=== PATIENT | female | born 1985 | race African-American/Black ===

== ENCOUNTER 2018-08-30 11:17 | Emergency (ER) | payer SELFPAY ==
[2018-08-30] MEDS ORDERED: NA CHLORIDE 0.9% 1,000 ML ONE (11:59)
[2018-08-30] MEDS ORDERED: ONDANSETRON 4 MG/2 ML VIAL ONE (11:59)
[2018-08-30] MEDS ORDERED: MORPHINE 2 MG/ML SYR ONE (11:59)
[2018-08-30 12:10] LABS: Absolute Monocytes 0.6 K/uL (0.1-1.3); Absolute Neutrophil 6.5 K/uL (1.8-8.0); Basophils % 0.6 % (0-1.3); Eosinophils % 1.5 % (0-4.4); Hematocrit 42.3 % (36.0-45.0); Lymphocytes % 28.9 % (15.3-44.8); MPV 10.6 fL (7.6-11.3); Monocytes % 5.8 % (3.3-12.3); RBC Red Blood Cell Count 4.36 M/uL (3.86-4.86)
[2018-08-30 12:18] LABS: Urine Blood NEGATIVE (NEG); Urine Glucose NEGATIVE (NEG); Urine Protein NEGATIVE (NEG)
[2018-08-30 12:20] LABS: Urine Bacteria >50 /HPF (<20); Urine Culture Reflex Order NOT NEEDED; Urine RBC <5 /HPF (NONE SEEN)
[2018-08-30 12:30] LABS: ALT/SGPT 28 U/L (12-78); AST/SGOT 24 U/L (15-37); Alkaline Phosphatase 62 U/L (45-117); BUN Blood Urea Nitrogen 9 mg/dL (7-18); Bicarbonate 28 mmol/L (21-32); Bilirubin Direct 0.2 mg/dL (0-0.2); Bilirubin Total 0.7 mg/dL (0.2-1.0); Glucose Level 77 mg/dL (74-106); Lipase 78 U/L (73-393); Potassium 4.1 mmol/L (3.5-5.1); Protein, Total 7.5 g/dL (6.4-8.2); Sodium Level 143 mmol/L (136-145)
[2018-08-30] MEDS ORDERED: KETOROLAC 30 MG/ML INJ ONE (12:48)
--- NOTE | 2018-08-30 12:57 | RAD REPORT ---
EXAM DESCRIPTION: US - Transvaginal Study Probe - 08/30/2018 12:47 pm CLINICAL HISTORY: lower abdomen/pelvic pain Pelvic pain. COMPARISON: No comparisons FINDINGS: The uterus is normal in size, shape and echotexture. The uterus measures 7.1 x 4.2 x 2.7 c m. The endometrial stripe measures 6 mm, normal. Both ovaries are normal in size, shape and echotexture. The right ovary measures 4.3 x 2.1 x 1.9 cm. The left ovary measures 4.0 x 2.5 x 2.1 cm. No ovarian or parovarian lesions. No adnexal masses. Normal Doppler blood flow was demonstrated to both ovaries. No significant pelvic ascites. IMPRESSION: Unremarkable study.
[2018-08-30] MEDS ORDERED: METHYLPREDNISOLONE 40 MG INJ ONE (14:50)
[2018-08-30] MEDS ORDERED: DIPHENHYDRAMINE 50 MG/ML VIAL ONE (14:50)
[2018-08-30] MEDS ORDERED: FAMOTIDINE 20 MG/2 ML VIAL IV ONE (14:50)
--- NOTE | 2018-08-30 15:20 | RAD REPORT ---
EXAM DESCRIPTION: CTAbdomen Pelvis W Contrast - 08/30/2018 3:15 pm CLINICAL HISTORY: Abdominal pain. lower abdomen pain/pelvic pain COMPARISON: <Comparisons> TECHNIQUE: Biphasic CT imaging of the abdomen and pelvis was performed with 100 ml non-ionic IV cont rast. All CT scans are performed using dose optimization technique as appropriate and may include automated exposure control or mA/KV adjustment according to patient size. FINDINGS: The lung bases are clear. The liver, spleen, pancreas, adrenal glands and kidneys are within normal limits. No bowel obstruction, free air, intra-abdominal free fluid or abscess. The appendix is normal. No e vidence of significant lymphadenopathy. Trace pelvic free fluid seen, favored to be physiologic. No suspicious bony findings. IMPRESSION: No acute intra-abdominal or pelvic finding.
--- NOTE | 2018-08-30 15:39 | EDPHYS ---
Physician Documentation [facility] Name: Ervin Iniguez Age: 33 yrs Sex: Female : 1985 Arrival Date: 08/30/2018 Time: 11:19 Bed 13 Private MD: None, None ED Physician Thai Rodas HPI: 08/30 11:50 This 33 yrs old Black Female presents to ER via Ambulatory with complaints of Abdominal cp Cramping, Back Pain, Pelvic Pain. 11:50 The patient presents with pelvic pain, the pain radiates to the back. cp 11:50 Onset: The symptoms/episode began/occurred this morning. cp 11:50 Modifying factors: the symptoms are aggravated by movement. cp 11:50 Associated signs and symptoms: Pertinent positives: nausea, vaginal discharge, cp Pertinent negatives: constipation, diarrhea, dysuria, fever, vaginal bleeding, vomiting. The patient is sexually active. The patient's method of control includes nothing. 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 - Social history:: Smoking status: Patient uses tobacco products, smokes one pack cigarettes per day. Patient uses street drugs, marijuana, daily. - Ebola Screening: : Patient denies travel to an Ebola-affected area in the 21 days before illness onset. ROS: 12:00 Constitutional: Negative for body aches, chills, fever, poor PO intake. cp 12:00 Eyes: Negative for injury, pain, redness, and discharge. cp 12:00 ENT: Negative for drainage from ear(s), ear pain, sore throat, difficulty swallowing, difficulty handling secretions. 12:00 Cardiovascular: Negative for chest pain, palpitations. 12:00 Respiratory: Negative for cough, shortness of breath, wheezing. 12:00 Abdomen/GI: Positive for abdominal pain, of the right lower quadrant and left lower quadrant, Negative for vomiting, diarrhea, constipation. 12:00 : Positive for pelvic pain, vaginal discharge, Negative for urinary symptoms, vaginal bleeding. 12:00 Neuro: Negative for altered mental status, dizziness, headache, weakness. 12:00 All other systems are negative. Exam: 12:12 Constitutional: The patient appears in no acute distress, alert, awake, non-toxic, well cp developed, well nourished, uncomfortable. 12:12 Head/Face: Normocephalic, atraumatic. cp 12:12 Eyes: Periorbital structures: appear normal, Conjunctiva: normal, no exudate, no injection, Sclera: no appreciated abnormality, Lids and lashes: appear normal, bilaterally. 12:12 ENT: External ear(s): are unremarkable, Nose: is normal, Mouth: Lips: moist, Oral mucosa: moist, Posterior pharynx: is normal, airway is patent, no erythema, no exudate. 12:12 Neck: ROM/movement: is normal, is supple, without pain, no range of motions limitations, no meningismus, no nuchal rigidity. 12:12 Chest/axilla: Inspection: normal, Palpation: is normal, no crepitus, no tenderness. 12:12 Cardiovascular: Rate: normal, Rhythm: regular. 12:12 Respiratory: the patient does not display signs of respiratory distress, Respirations: normal, no use of accessory muscles, no retractions, no splinting, no tachypnea, Breath sounds: are clear throughout. 12:12 Abdomen/GI: Inspection: abdomen appears normal, Bowel sounds: normal, in all quadrants, Palpation: soft, in all quadrants, moderate abdominal tenderness, in the right lower quadrant and left lower quadrant, rebound tenderness, is not appreciated, involuntary guarding, is elicited in the right lower quadrant and left lower quadrant. 12:12 Back: ROM is normal, CVA tenderness, is absent. 12:12 Skin: cellulitis, is not appreciated, no rash present. 14:30 : Pelvic Exam: External exam: is normal, Speculum exam: no bleeding is noted, cp bimanual exam reveals cervical motion tenderness, uterine tenderness, right adnexal tenderness, left adnexal tenderness, no adnexal mass on right, no adnexal mass on left, discharge, white, a female director of in service education was present for the exam, Sexual behavior: the patient is sexually active. Vital Signs: 11:39 BP 107 / 71; Pulse 77; Resp 18; Temp 98(TE); Pulse Ox 100% on R/A; Weight 49.9 kg (R); tw2 Height 4 ft. 11 in. (149.86 cm); Pain 10/10; 12:40 BP 126 / 88; Pulse 58; Resp 17; Pulse Ox 99% on R/A; tw2 13:07 BP 111 / 91; Pulse 63; Resp 17; Pulse Ox 100% on R/A; tw2 14:06 BP 117 / 96; Pulse 63; Resp 17; Pulse Ox 99% on R/A; tw2 15:00 BP 108 / 77; Pulse 69; Resp 17; Pulse Ox 99% on R/A; tw2 15:54 BP 103 / 66; Pulse 61; Resp 17; Pulse Ox 100% on R/A; tw2 11:39 Body Mass Index 22.22 (49.90 kg, 149.86 cm) tw2 MDM: 11:33 Patient medically screened. cp 12:00 Differential diagnosis: ectopic , ovarian cyst, pelvic inflammatory disease. cp 15:30 Data reviewed: vital signs, nurses notes, lab test result(s), radiologic studies, CT cp scan, ultrasound, and as a result, I will discharge patient. 08/30 11:46 Order name: Basic Metabolic Panel; Complete Time: 12:34 cp 08/30 12:34 Interpretation: Normal except: CL 110. cp 08/30 11:46 Order name: CBC with Diff; Complete Time: 12:28 cp 08/30 12:28 Interpretation: Reviewed. cp 08/30 11:46 Order name: Creatinine for Radiology; Complete Time: 12:34 cp 08/30 11:46 Order name: Hepatic Function; Complete Time: 12:34 cp 08/30 11:46 Order name: Lipase; Complete Time: 12:34 cp 08/30 11:46 Order name: Urine Microscopic Only; Complete Time: 12:28 cp 08/30 12:28 Interpretation: Normal except: UBACT >50; SQEPI 20-50. cp 08/30 11:46 Order name: US Transvaginal Study (Probe); Complete Time: 14:25 cp 08/30 12:07 Order name: Urine Dipstick--Ancillary (enter results); Complete Time: 12:28 eb 08/30 12:07 Order name: Urine --Ancillary (enter results); Complete Time: 12:28 eb 08/30 12:34 Order name: CT Abd/Pelvis - W/Contrast; Complete Time: 15:25 cp 08/30 12:40 Order name: GC (GONORR/CHLAMYDIA) Probe cp 08/30 12:40 Order name: Wet Prep; Complete Time: 14:25 cp 08/30 14:25 Interpretation: Reviewed. cp 08/30 11:46 Order name: IV Saline Lock; Complete Time: 12:03 cp 08/30 11:46 Order name: Labs collected and sent; Complete Time: 12:03 cp 08/30 11:46 Order name: Urine Test (obtain specimen); Complete Time: 11:48 cp 08/30 11:46 Order name: Urine Dipstick-Ancillary (obtain specimen); Complete Time: 11:48 cp 08/30 12:40 Order name: Pelvic Exam Setup; Complete Time: 12:41 cp Administered Medications: 11:52 Drug: Zofran 4 mg Route: IVP; Site: right antecubital; tw2 12:40 Follow up: Response: No adverse reaction tw2 11:54 Drug: morphine 2 mg Route: IVP; Site: right antecubital; tw2 12:40 Follow up: Response: No adverse reaction; Pain is unchanged, physician notified tw2 11:57 Drug: NS 0.9% 1000 ml Route: IV; Rate: 1 bolus; Site: right antecubital; tw2 14:49 Follow up: Response: No adverse reaction; IV Status: Completed infusion; IV Intake: tw2 1000ml 12:37 Drug: TORadol 30 mg Route: IVP; Site: right antecubital; tw2 14:50 Follow up: Response: No adverse reaction; Pain is decreased tw2 13:40 Drug: Zithromax 1 grams Route: PO; tw2 15:55 Follow up: Response: No adverse reaction tw2 14:40 Drug: Benadryl 25 mg Route: IVP; Site: right antecubital; tw2 15:34 Follow up: Response: No adverse reaction tw2 14:45 Drug: Pepcid 20 mg Route: IVP; Site: right antecubital; tw2 15:34 Follow up: Response: No adverse reaction tw2 14:48 Drug: SOLU-Medrol 80 mg Route: IVP; Site: right antecubital; tw2 15:34 Follow up: Response: No adverse reaction tw2 15:40 Drug: Rocephin 1 grams Route: IV; Rate: bolus; Site: right antecubital; tw2 15:45 Follow up: Response: No adverse reaction; IV Status: Completed infusion tw2 15:40 Drug: metroNIDAZOLE 500 mg Route: PO; tw2 15:55 Follow up: Response: No adverse reaction tw2 Disposition: 17:13 Co-signature as Attending Physician, Thai Rodas MD. rn Disposition: 08/30/18 15:38 Discharged to Home. Impression: Female pelvic inflammatory disease, unspecified. - Condition is Stable. - Discharge Instructions: Pelvic Inflammatory Disease, Pelvic Pain, Female. - Prescriptions for Ibuprofen 600 mg Oral Tablet - take 1 tablet by ORAL route every 6 hours As needed take with food; 30 tablet. Tylenol- Codeine #3 300-30 mg Oral Tablet - take 2 tablets by ORAL route every 6 hours As needed; 15 tablet. Doxycycline Hyclate 100 mg Oral Tablet - take 1 tablet by ORAL route every 12 hours; 20 tablet. Metronidazole 500 mg Oral Tablet - take 1 tablet by ORAL route every 8 hours; 30 tablet. - Medication Reconciliation Form, Thank You Letter, Antibiotic Education, Prescription Opioid Use form. - Follow up: Margarita Win MD; When: 1 week; Reason: Recheck today's complaints. - Problem is new. - Symptoms have improved. Signatures: Dispatcher [employer] EDThai Carver MD MD rn Page, Corey, PA PA cp Wise, Tara, RN RN tw2 Corrections: (The following items were deleted from the chart) 15:56 15:38 08/30/2018 15:38 Discharged to Home. Impression: Female pelvic inflammatory tw2 disease, unspecified. Condition is Stable. Forms are Medication Reconciliation Form, Thank You Letter, Antibiotic Education, Prescription Opioid Use. Follow up: Margarita Win; When: 1 week; Reason: Recheck today's complaints. Problem is new. Symptoms have improved. cp
--- NOTE | 2018-08-30 15:39 | ER ---
Nurse's Notes [facility] Name: Ervin Iniguez Age: 33 yrs Sex: Female : 1985 Arrival Date: 08/30/2018 Time: 11:19 Bed 13 Private MD: None, None Diagnosis: Female pelvic inflammatory disease, unspecified Presentation: 08/30 11:38 Presenting complaint: Patient states: "my insides feels like its falling out and i am tw2 having back pain that runs straight down to my private, i havent had sex since June". Transition of care: patient was not received from another setting of care. Onset of symptoms was August 30, 2018. Risk Assessment: Do you want to hurt yourself or someone else? Patient reports no desire to harm self or others. Initial Sepsis Screen: Does the patient meet any 2 criteria? No. Patient's initial sepsis screen is negative. Does the patient have a suspected source of infection? No. Patient's initial sepsis screen is negative. Care prior to arrival: None. 11:38 Method Of Arrival: Ambulatory tw2 11:38 Acuity: MARGARET 3 tw2 Triage Assessment: 11:41 General: Appears uncomfortable, Behavior is appropriate for age. Pain: Complains of tw2 pain in pelvis. GI: Reports cramping. 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 - Social history:: Smoking status: Patient uses tobacco products, smokes one pack cigarettes per day. Patient uses street drugs, marijuana, daily. - Ebola Screening: : Patient denies travel to an Ebola-affected area in the 21 days before illness onset. Screenin:44 Abuse screen: Denies threats or abuse. Nutritional screening: No deficits noted. tw2 Tuberculosis screening: Fall Risk None identified. Assessment: 11:44 General: Appears uncomfortable, slender, Behavior is appropriate for age. Pain: tw2 Complains of pain in pelvis. Neuro: Level of Consciousness is awake, alert, obeys commands, Oriented to person, place, time, situation. Cardiovascular: Heart tones S1 S2 Patient's skin is warm and dry. Respiratory: Airway is patent Respiratory effort is even, unlabored, Respiratory pattern is regular, symmetrical, Breath sounds are clear bilaterally. GI: Abdomen is flat, distended, Bowel sounds present X 4 quads. Abd is soft X 4 quads. GI: Reports cramping. : Denies incontinence, urinary frequency, vaginal bleeding. EENT: No signs and/or symptoms were reported regarding the EENT system. Derm: No signs and/or symptoms reported regarding the dermatologic system. Musculoskeletal: Range of motion: intact in all extremities. 12:41 Reassessment: Patient appears in no apparent distress at this time. Patient and/or tw2 family updated on plan of care and expected duration. Pain level reassessed. Patient is alert, oriented x 3, equal unlabored respirations, skin warm/dry/pink. Patient states symptoms have not improved. 12:45 Reassessment: call made to outside lab for wet prep and gc probes - Pelvic exam on hold tw2 at this time. 12:49 Reassessment: pt completed oral contrast at this time. tw2 13:07 Reassessment: Patient appears in no apparent distress at this time. Patient and/or tw2 family updated on plan of care and expected duration. Pain level reassessed. Patient is alert, oriented x 3, equal unlabored respirations, skin warm/dry/pink. 14:06 Reassessment: Patient appears in no apparent distress at this time. Patient and/or tw2 family updated on plan of care and expected duration. Pain level reassessed. Patient is alert, oriented x 3, equal unlabored respirations, skin warm/dry/pink. 15:00 Reassessment: Patient appears in no apparent distress at this time. Patient and/or tw2 family updated on plan of care and expected duration. Pain level reassessed. Patient is alert, oriented x 3, equal unlabored respirations, skin warm/dry/pink. 15:55 Reassessment: Patient appears in no apparent distress at this time. Patient and/or tw2 family updated on plan of care and expected duration. Pain level reassessed. Patient is alert, oriented x 3, equal unlabored respirations, skin warm/dry/pink. Vital Signs: 11:39 BP 107 / 71; Pulse 77; Resp 18; Temp 98(TE); Pulse Ox 100% on R/A; Weight 49.9 kg (R); tw2 Height 4 ft. 11 in. (149.86 cm); Pain 10/10; 12:40 BP 126 / 88; Pulse 58; Resp 17; Pulse Ox 99% on R/A; tw2 13:07 BP 111 / 91; Pulse 63; Resp 17; Pulse Ox 100% on R/A; tw2 14:06 BP 117 / 96; Pulse 63; Resp 17; Pulse Ox 99% on R/A; tw2 15:00 BP 108 / 77; Pulse 69; Resp 17; Pulse Ox 99% on R/A; tw2 15:54 BP 103 / 66; Pulse 61; Resp 17; Pulse Ox 100% on R/A; tw2 11:39 Body Mass Index 22.22 (49.90 kg, 149.86 cm) tw2 ED Course: 11:19 Patient arrived in ED. mr 11:20 None, None is Private Physician. mr 11:32 Yury Pena PA is PHCP. cp 11:32 Bed in low position. Call light in reach. Adult w/ patient. Pulse ox on. NIBP on. tw2 11:33 Thai Rodas MD is Attending Physician. cp 11:38 Joanna Jamison, JEOVANY is Primary Nurse. tw2 11:39 Triage completed. tw2 11:40 Arm band placed on. tw2 11:50 Inserted saline lock: 20 gauge in right antecubital area, using aseptic technique. tw2 Blood collected. 11:55 Urine collected: clean catch specimen, cloudy. 5 11:55 Urine Microscopic Only Sent. 5 12:47 US Transvaginal Study (Probe) In Process Unspecified. EDMS 12:47 Ultrasound completed. Patient tolerated well. Notified CERTIFIED EXECUTIVE CHEF/PA page. sg3 13:00 Assist provider with pelvic exam: Set up pelvic tray. Performed by Yury ANDINO tw2 Specimens sent to lab. Patient tolerated well. 15:05 CT completed. Patient tolerated procedure well. Patient moved to CT. Patient moved back from CT. 15:15 CT Abd/Pelvis - W/Contrast In Process Unspecified. EDMS 15:38 Margarita Win MD is Referral Physician. cp 15:56 IV discontinued, intact, bleeding controlled, No redness/swelling at site. Pressure tw2 dressing applied. Administered Medications: 11:52 Drug: Zofran 4 mg Route: IVP; Site: right antecubital; tw2 12:40 Follow up: Response: No adverse reaction tw2 11:54 Drug: morphine 2 mg Route: IVP; Site: right antecubital; tw2 12:40 Follow up: Response: No adverse reaction; Pain is unchanged, physician notified tw2 11:57 Drug: NS 0.9% 1000 ml Route: IV; Rate: 1 bolus; Site: right antecubital; tw2 14:49 Follow up: Response: No adverse reaction; IV Status: Completed infusion; IV Intake: tw2 1000ml 12:37 Drug: TORadol 30 mg Route: IVP; Site: right antecubital; tw2 14:50 Follow up: Response: No adverse reaction; Pain is decreased tw2 13:40 Drug: Zithromax 1 grams Route: PO; tw2 15:55 Follow up: Response: No adverse reaction tw2 14:40 Drug: Benadryl 25 mg Route: IVP; Site: right antecubital; tw2 15:34 Follow up: Response: No adverse reaction tw2 14:45 Drug: Pepcid 20 mg Route: IVP; Site: right antecubital; tw2 15:34 Follow up: Response: No adverse reaction tw2 14:48 Drug: SOLU-Medrol 80 mg Route: IVP; Site: right antecubital; tw2 15:34 Follow up: Response: No adverse reaction tw2 15:40 Drug: Rocephin 1 grams Route: IV; Rate: bolus; Site: right antecubital; tw2 15:45 Follow up: Response: No adverse reaction; IV Status: Completed infusion tw2 15:40 Drug: metroNIDAZOLE 500 mg Route: PO; tw2 15:55 Follow up: Response: No adverse reaction tw2 Intake: 14:49 IV: 1000ml; Total: 1000ml. tw2 Outcome: 15:38 Discharge ordered by . cp 15:56 Discharged to home ambulatory, with family. tw2 15:56 Condition: stable 15:56 Discharge instructions given to patient, family, Instructed on discharge instructions, follow up and referral plans. no drinking with medication, no driving heavy equipment, medication usage, Demonstrated understanding of instructions, follow-up care, medications, Prescriptions given X 4. 15:56 Patient left the ED. tw2 Signatures: Dispatcher [employer] EDMS RodHermelinda mr Tammy, Yury Prabhakar PA PA cp Wise, Tara, RN RN 2 Alejandra Hannah [facility] [place] 3
[2018-08-30] MEDS ORDERED: CEFTRIAXONE/SWI 1gm 1 GM/10 ML SYR ONE (15:48)
[2018-08-30] MEDS ORDERED: AZITHROMYCIN 250 MG TAB ONE (15:48)
[2018-08-30] MEDS ORDERED: metroNIDAZOLE 500 MG TABLET ONE (15:48)
[2018-09-02 22:29] LABS: C.trachomatis RNA,TMA Not Detected (Not Detected)
== END 2018-08-30 15:56 | disposition home or self-care (01) ==
LOC: ER 11:17
DX: N73.9 Female pelvic inflammatory disease, unspecified (principal); F17.210 Nicotine dependence, cigarettes, uncomplicated; Z91.013 Allergy to seafood
CPT/HCPCS: 36415; 74177; 76830; 80048; 80076; 81003; 81015; 81025; 83690; 85025; 87210; 87490; 87590; 96361; 96374; 96375; 99285; J0696; J2270; J2405; J2920; J7030; Q9967

== ENCOUNTER 2018-12-24 19:04 | Emergency (ER) | payer SELFPAY ==
[2018-12-24 19:57] LABS: Absolute Lymphocytes (CBC) 3.1 K/uL (0.7-4.9); Basophils % 0.8 % (0-1.3); Hematocrit 41.8 % (36.0-45.0); Lymphocytes % 31.6 % (15.3-44.8); MPV 10.4 fL (7.6-11.3); RBC Red Blood Cell Count 4.26 M/uL (3.86-4.86)
[2018-12-24] MEDS ORDERED: NA CHLORIDE 0.9% 1,000 ML ONE (20:01)
[2018-12-24 20:08] LABS: Potassium 3.5 mmol/L (3.5-5.1)
[2018-12-24 20:20] LABS: Urine Blood 1+ (NEG); Urine Glucose NEGATIVE (NEG); Urine Protein NEGATIVE (NEG); Urine Specific Gravity 1.025 (1.005-1.030); Urine pH 5.5 (5.0-7.0)
[2018-12-24] MEDS ORDERED: MORPHINE 2 MG/ML SYR ONE (20:39)
[2018-12-24] MEDS ORDERED: ONDANSETRON 4 MG/2 ML VIAL ONE (20:39)
--- NOTE | 2018-12-24 20:53 | EDPHYS ---
Physician Documentation [facility] Name: Ervin Iniguez Age: 33 yrs Sex: Female : 1985 Arrival Date: 12/24/2018 Time: 19:06 Bed 17 Private MD: ED Physician Yury Raygoza HPI: 12/24 20:15 This 33 yrs old Black Female presents to ER via Ambulatory with complaints of Vaginal stephanie Bleeding. 20:15 The patient presents with pelvic pain, that is located in/on the suprapubic area, right stephanie lower quadrant and left lower quadrant, vaginal bleeding that is. Onset: The symptoms/episode began/occurred 1 day(s) ago. Modifying factors: The symptoms are alleviated by nothing, the symptoms are aggravated by nothing. Associated signs and symptoms: The patient has no apparent associated signs or symptoms. Severity of symptoms: At their worst the symptoms were moderate, in the emergency department the symptoms are unchanged. The patient is not sexually active. 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 - Social history:: Smoking status: Patient/guardian denies using tobacco. - Ebola Screening: : Patient negative for fever greater than or equal to 101.5 degrees Fahrenheit, and additional compatible Ebola Virus Disease symptoms Patient denies exposure to infectious person Patient denies travel to an Ebola-affected area in the 21 days before illness onset No symptoms or risks identified at this time. - Family history:: not pertinent. ROS: 20:15 Constitutional: Negative for fever, chills, and weight loss, Eyes: Negative for injury, stephanie pain, redness, and discharge, ENT: Negative for injury, pain, and discharge, Neck: Negative for injury, pain, and swelling, Cardiovascular: Negative for chest pain, palpitations, and edema, Respiratory: Negative for shortness of breath, cough, wheezing, and pleuritic chest pain, Abdomen/GI: Negative for abdominal pain, nausea, vomiting, diarrhea, and constipation, Back: Negative for injury and pain, MS/Extremity: Negative for injury and deformity, Skin: Negative for injury, rash, and discoloration, Neuro: Negative for headache, weakness, numbness, tingling, and seizure, Psych: Negative for depression, anxiety, suicide ideation, homicidal ideation, and hallucinations, Allergy/Immunology: Negative for hives, rash, and allergies, Endocrine: Negative for neck swelling, polydipsia, polyuria, polyphagia, and marked weight changes, Hematologic/Lymphatic: Negative for swollen nodes, abnormal bleeding, and unusual bruising. 20:15 : Positive for vaginal bleeding. Exam: 20:15 Constitutional: This is a well developed, well nourished patient who is awake, alert, stephanie and in no acute distress. Head/Face: Normocephalic, atraumatic. Eyes: Pupils equal round and reactive to light, extra-ocular motions intact. Lids and lashes normal. Conjunctiva and sclera are non-icteric and not injected. Cornea within normal limits. Periorbital areas with no swelling, redness, or edema. ENT: Nares patent. No nasal discharge, no septal abnormalities noted. Tympanic membranes are normal and external auditory canals are clear. Oropharynx with no redness, swelling, or masses, exudates, or evidence of obstruction, uvula midline. Mucous membranes moist. Neck: Trachea midline, no thyromegaly or masses palpated, and no cervical lymphadenopathy. Supple, full range of motion without nuchal rigidity, or vertebral point tenderness. No Meningismus. Chest/axilla: Normal chest wall appearance and motion. Nontender with no deformity. No lesions are appreciated. Cardiovascular: Regular rate and rhythm with a normal S1 and S2. No gallops, murmurs, or rubs. Normal PMI, no JVD. No pulse deficits. Respiratory: Lungs have equal breath sounds bilaterally, clear to auscultation and percussion. No rales, rhonchi or wheezes noted. No increased work of breathing, no retractions or nasal flaring. Abdomen/GI: Soft, non-tender, with normal bowel sounds. No distension or tympany. No guarding or rebound. No evidence of tenderness throughout. Back: No spinal tenderness. No costovertebral tenderness. Full range of motion. Skin: Warm, dry with normal turgor. Normal color with no rashes, no lesions, and no evidence of cellulitis. MS/ Extremity: Pulses equal, no cyanosis. Neurovascular intact. Full, normal range of motion. Neuro: Awake and alert, GCS 15, oriented to person, place, time, and situation. Cranial nerves II-XII grossly intact. Motor strength 5/5 in all extremities. Sensory grossly intact. Cerebellar exam normal. Normal gait. Psych: Awake, alert, with orientation to person, place and time. Behavior, mood, and affect are within normal limits. Vital Signs: 19:10 BP 105 / 64; Pulse 74; Resp 18; Temp 98.0; Pulse Ox 100% on R/A; Weight 51.26 kg; aj Height 4 ft. 11 in. (149.86 cm); 20:49 BP 119 / 66; Pulse 50; Resp 16; Temp 98.0; Pulse Ox 100% on R/A; Pain 0/10; ak1 19:10 Body Mass Index 22.82 (51.26 kg, 149.86 cm) aj MDM: 19:22 Patient medically screened. [facility] 20:18 Data reviewed: vital signs, nurses notes, lab test result(s), electrolytes, hepatic stephanie panel, urinalysis. 12/24 19:22 Order name: Basic Metabolic Panel; Complete Time: 20:15 [facility] 12/24 19:22 Order name: CBC with Diff; Complete Time: 20:15 [facility] 12/24 20:03 Order name: Urine Dipstick--Ancillary (enter results); Complete Time: 20:53 ar5 12/24 20:06 Order name: Test, Urine; Complete Time: 20:53 EDUT 12/24 19:22 Order name: Urine Test (obtain specimen); Complete Time: 19:56 [facility] 12/24 19:22 Order name: IV Saline Lock; Complete Time: 19:50 [facility] 12/24 19:22 Order name: Labs collected and sent; Complete Time: 19:50 [facility] 12/24 19:22 Order name: NPO; Complete Time: 19:57 [facility] 12/24 19:22 Order name: Urine Dipstick-Ancillary (obtain specimen); Complete Time: 19:56 [facility] Administered Medications: 19:57 Drug: NS 0.9% 1000 ml Route: IV; Rate: 1 bolus; Site: left antecubital; ak1 21:15 Follow up: Response: No adverse reaction; IV Status: Completed infusion; IV Intake: jb4 500ml 20:36 Drug: Zofran 4 mg Route: IVP; Site: left antecubital; ak1 21:00 Follow up: Response: No adverse reaction; Nausea is decreased jb4 20:37 Drug: morphine 2 mg Route: IVP; Site: left antecubital; ak1 21:00 Follow up: Response: No adverse reaction; Pain is decreased jb4 21:18 Not Given (Patient Refused): morphine 2 mg IVP once jb4 Disposition: 12/24/18 20:53 Discharged to Home. Impression: Pelvic and perineal pain - vaginal bleeding, Dysmenorrhea, unspecified. - Condition is Stable. - Discharge Instructions: Abdominal Pain, Adult, Dysmenorrhea, Pelvic Pain, Female, Dysfunctional Uterine Bleeding, Pelvic Pain, Female, Zepf-ea-Brle, Dysmenorrhea, Bjqw-wt-[id number]. - Prescriptions for Ibuprofen 600 mg Oral Tablet - take 1 tablet by ORAL route every 8 hours As needed take with food; 21 tablet. Tylenol- Codeine #3 300-30 mg Oral Tablet - take 2 tablets by ORAL route every 6 hours As needed; 15 tablet. - Medication Reconciliation Form, Thank You Letter, Antibiotic Education, Prescription Opioid Use, Work release form form. - Follow up: Private Physician; When: 2 - 3 days; Reason: Recheck today's complaints, Continuance of care, Re-evaluation by your physician. Follow up: Miguel Askew; When: 2 - 3 days; Reason: Recheck today's complaints, Continuance of care, Re-evaluation by your physician. - Problem is new. - Symptoms have improved. Signatures: Dispatcher [employer] EDMayelin Kuo RN RN aj Anderson, Corey, MD MD cha Krenek, Amber, RN RN ak1 Ambrosio Cronin RN RN jb4 Corrections: (The following items were deleted from the chart) 21:17 20:53 12/24/2018 20:53 Discharged to Home. Impression: Pelvic and perineal pain - jb4 vaginal bleeding; Dysmenorrhea, unspecified. Condition is Stable. Discharge Instructions: Abdominal Pain, Adult, Dysmenorrhea, Pelvic Pain, Female, Dysfunctional Uterine Bleeding, Pelvic Pain, Female, Pqcr-[id number], Dysmenorrhea, [id number]-[id number]. Prescriptions for Ibuprofen 600 mg Oral Tablet - take 1 tablet by ORAL route every 8 hours As needed take with food; 21 tablet, Tylenol-Codeine #3 300-30 mg Oral Tablet - take 2 tablets by ORAL route every 6 hours As needed; 15 tablet. and Forms are Medication Reconciliation Form, Thank You Letter, Antibiotic Education, Prescription Opioid Use. Follow up: Private Physician; When: 2 - 3 days; Reason: Recheck today's complaints, Continuance of care, Re-evaluation by your physician. Follow up: Miguel Askew; When: 2 - 3 days; Reason: Recheck today's complaints, Continuance of care, Re-evaluation by your physician. Problem is new. Symptoms have improved. stephanie
--- NOTE | 2018-12-24 20:53 | ER ---
Nurse's Notes [facility] Name: Ervin Iniguez Age: 33 yrs Sex: Female : 1985 Arrival Date: 12/24/2018 Time: 19:06 Bed 17 Private MD: Diagnosis: Pelvic and perineal pain-vaginal bleeding;Dysmenorrhea, unspecified Presentation: 12/24 19:10 Presenting complaint: Patient states: Reports vaginal bleeding that started yesterday. aj Reports having a period 10 days ago. Transition of care: patient was not received from another setting of care. Onset of symptoms was December 23, 2018. Risk Assessment: Do you want to hurt yourself or someone else? Patient reports no desire to harm self or others. Initial Sepsis Screen: Does the patient meet any 2 criteria? No. Patient's initial sepsis screen is negative. Does the patient have a suspected source of infection? No. Patient's initial sepsis screen is negative. Care prior to arrival: None. 19:10 Method Of Arrival: Ambulatory 19:10 Acuity: MARGARET 3 aj Triage Assessment: 19:10 General: Appears in no apparent distress. comfortable, Behavior is calm, cooperative, aj appropriate for age. Pain: Complains of pain in pelvis. Neuro: Level of Consciousness is awake, alert, obeys commands, Oriented to person, place, time, situation, Appropriate for age. Respiratory: Airway is patent Respiratory effort is even, unlabored, Respiratory pattern is regular, symmetrical. : Reports vaginal bleeding that is moderate flow. Derm: Skin is intact, is healthy with good turgor, Skin is pink, warm \T\ dry. normal. 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 - Social history:: Smoking status: Patient/guardian denies using tobacco. - Ebola Screening: : Patient negative for fever greater than or equal to 101.5 degrees Fahrenheit, and additional compatible Ebola Virus Disease symptoms Patient denies exposure to infectious person Patient denies travel to an Ebola-affected area in the 21 days before illness onset No symptoms or risks identified at this time. - Family history:: not pertinent. Screenin:59 Abuse screen: Denies threats or abuse. Denies injuries from another. Nutritional ak1 screening: No deficits noted. Tuberculosis screening: No symptoms or risk factors identified. Fall Risk None identified. Assessment: 19:58 General: Appears in no apparent distress. comfortable, Behavior is calm, cooperative. ak1 Pain: Complains of pain in pelvis. Neuro: No deficits noted. Cardiovascular: No deficits noted. Respiratory: No deficits noted. GI: No signs and/or symptoms were reported involving the gastrointestinal system. : No signs and/or symptoms were reported regarding the genitourinary system. :. : Reports pain lower abd, sharp and intermittent that radiates to vagina. vaginal bleeding that is with clots, dark red. EENT: No signs and/or symptoms were reported regarding the EENT system. Derm: No signs and/or symptoms reported regarding the dermatologic system. Musculoskeletal: No signs and/or symptoms reported regarding the musculoskeletal system. 20:48 Reassessment: Patient appears in no apparent distress at this time. Patient and/or ak1 family updated on plan of care and expected duration. Pain level reassessed. Patient is alert, oriented x 3, equal unlabored respirations, skin warm/dry/pink. pt asking if family can go get pt food, pt informed to wait until test results are completed. Patient states feeling better. Patient states symptoms have improved. 21:15 Reassessment: Patient appears in no apparent distress at this time. Patient and/or jb4 family updated on plan of care and expected duration. Pain level reassessed. Patient is alert, oriented x 3, equal unlabored respirations, skin warm/dry/pink. PT verbalized understanding of d/c and follow up instructions. ambulated out of Ed with steady gait, denies questions or concerns. Vital Signs: 19:10 BP 105 / 64; Pulse 74; Resp 18; Temp 98.0; Pulse Ox 100% on R/A; Weight 51.26 kg; aj Height 4 ft. 11 in. (149.86 cm); 20:49 BP 119 / 66; Pulse 50; Resp 16; Temp 98.0; Pulse Ox 100% on R/A; Pain 0/10; ak1 19:10 Body Mass Index 22.82 (51.26 kg, 149.86 cm) ED Course: 19:06 Patient arrived in ED. mr 19:10 Triage completed. aj 19:10 Arm band placed on right wrist. Patient placed in an exam room. 19:19 Neda Beatty, RN is Primary Nurse. ak1 19:22 Yury Raygoza MD is Attending Physician. [facility] 19:50 Initial lab(s) drawn, by mi, sent to lab. Inserted saline lock: 22 gauge in left lt1 antecubital area, using aseptic technique. 19:59 Patient has correct armband on for positive identification. Placed in gown. Bed in low ak1 position. Call light in reach. Side rails up X 1. Adult w/ patient. Pulse ox on. NIBP on. 20:52 Miguel Askew MD is Referral Physician. stephanie 21:15 No provider procedures requiring assistance completed. IV discontinued, intact, jb4 bleeding controlled, No redness/swelling at site. Administered Medications: 19:57 Drug: NS 0.9% 1000 ml Route: IV; Rate: 1 bolus; Site: left antecubital; ak1 21:15 Follow up: Response: No adverse reaction; IV Status: Completed infusion; IV Intake: jb4 500ml 20:36 Drug: Zofran 4 mg Route: IVP; Site: left antecubital; ak1 21:00 Follow up: Response: No adverse reaction; Nausea is decreased jb4 20:37 Drug: morphine 2 mg Route: IVP; Site: left antecubital; ak1 21:00 Follow up: Response: No adverse reaction; Pain is decreased jb4 21:18 Not Given (Patient Refused): morphine 2 mg IVP once jb4 Intake: 21:15 IV: 500ml; Total: 500ml. jb4 Outcome: 20:53 Discharge ordered by . stephanie 21:15 Discharged to home ambulatory, with significant other. jb4 21:15 Condition: stable 21:15 Discharge instructions given to patient, significant other, Instructed on discharge instructions, follow up and referral plans. medication usage, Demonstrated understanding of instructions, follow-up care, medications, Prescriptions given X 2. 21:17 Patient left the ED. jb4 Signatures: Mayelin Marroquin RN RN aj Anderson, Corey, MD MD cha Rivera, Mary mr Neda Beatty RN RN ak Ambrosio Cronin RN RN jb4 Adia Ann lt1
== END 2018-12-24 21:17 | disposition home or self-care (01) ==
LOC: ER 19:04
DX: N94.6 Dysmenorrhea, unspecified (principal); R10.2 Pelvic and perineal pain; Z91.013 Allergy to seafood
CPT/HCPCS: 36415; 80048; 81003; 81025; 85025; 96361; 96374; 96375; 99284; J2270; J2405; J7030

== ENCOUNTER 2018-12-30 15:47 | Emergency (ER) | payer SELFPAY ==
[2018-12-30 16:36] LABS: Absolute Lymphocytes (CBC) 3.4 K/uL (0.7-4.9); Basophils % 0.9 % (0-1.3); Hematocrit 42.8 % (36.0-45.0); Lymphocytes % 30.4 % (15.3-44.8); MPV 10.7 fL (7.6-11.3); RBC Red Blood Cell Count 4.39 M/uL (3.86-4.86)
[2018-12-30] MEDS ORDERED: ONDANSETRON 4 MG/2 ML VIAL ONE (16:39)
[2018-12-30] MEDS ORDERED: NA CHLORIDE 0.9% 1,000 ML ONE (16:39)
[2018-12-30 16:53] LABS: ALT/SGPT 16 U/L (12-78); AST/SGOT 12 U/L (15-37); Alkaline Phosphatase 56 U/L (45-117); BUN Blood Urea Nitrogen 7 mg/dL (7-18); Bicarbonate 30 mmol/L (21-32); Bilirubin Direct 0.2 mg/dL (0-0.2); Bilirubin Total 0.7 mg/dL (0.2-1.0); Glucose Level 86 mg/dL (74-106); Lipase 52 U/L (73-393); Potassium 3.5 mmol/L (3.5-5.1); Protein, Total 7.2 g/dL (6.4-8.2); Sodium Level 144 mmol/L (136-145)
[2018-12-30 17:20] LABS: Urine Blood TRACE (NEG); Urine Glucose NEGATIVE (NEG); Urine Protein TRACE (NEG); Urine Specific Gravity 1.025 (1.005-1.030)
--- NOTE | 2018-12-30 19:26 | RAD REPORT ---
EXAM DESCRIPTION: CT - Abdomen Pelvis W Contrast - 12/30/2018 5:51 pm CLINICAL HISTORY: Abdominal pain, nausea COMPARISON: CT study August 2018 TECHNIQUE: Biphasic, helical CT imaging of the abdomen and pelvis was performed following 100 ml non -ionic IV contrast. Oral contrast was given. All CT scans are performed using dose optimization technique as appropriate and may include automated exposure control or mA/KV adjustment according to patient size. FINDINGS: No suspicious findings in the lung bases. The liver, spleen, and pancreas show no suspicious findings. Gallbladder and biliary tree are also wi thout suspicious finding. Symmetric renal function is seen with no hydronephrosis or suspicious renal mass. No pyelonephritis o r acute parenchymal process. No bladder abnormalities. No adrenal abnormalities. No dilated bowel loops or bowel wall thickening. No free air or pneumatosis. No hernia, mass or bul ky lymphadenopathy. No uterine abnormality. Normal cysts and follicles are seen on the right ovary. Left ovary is a littl e bit more heterogeneous. There is some trace amount of stranding in the left adnexae extending into the cul de sac. Cyst rupture, hemorrhage or leakage may be possible. No suspicious bony findings. IMPRESSION: No obstruction, free air or surgically emergent finding. Congestion and edema appearance to the cul-de-sac and left adnexa. Patient may have a hemorrhagic, ru ptured or leaking left ovarian cyst.
--- NOTE | 2018-12-30 19:47 | ER ---
Nurse's Notes [facility] Name: Ervin Iniguez Age: 33 yrs Sex: Female : 1985 Arrival Date: 12/30/2018 Time: 15:47 Bed 6 Private MD: None, None Diagnosis: Lower abdominal pain, unspecified;Nausea and vomiting Presentation: 12/30 15:55 Presenting complaint: Patient states: i feel like i wanna throw up, im really hj nauseated, this started this AM, reports abd pain; denies diarrhea or constipation; denies fever and chills;. Transition of care: patient was not received from another setting of care. Onset of symptoms was December 30, 2018. Risk Assessment: Do you want to hurt yourself or someone else? Patient reports no desire to harm self or others. Initial Sepsis Screen: Does the patient meet any 2 criteria? No. Patient's initial sepsis screen is negative. Does the patient have a suspected source of infection? No. Patient's initial sepsis screen is negative. Care prior to arrival: None. 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 - Social history:: Smoking status: unknown. - Ebola Screening: : No symptoms or risks identified at this time. Screenin:49 Abuse screen: Denies threats or abuse. Denies injuries from another. Nutritional rv screening: No deficits noted. Tuberculosis screening: No symptoms or risk factors identified. Fall Risk None identified. Assessment: 16:48 General: Appears in no apparent distress. comfortable, Behavior is calm, cooperative. rv Pain: Denies pain. Neuro: Level of Consciousness is awake, alert, obeys commands, Oriented to person, place, time, situation. Cardiovascular: Patient's skin is warm and dry. Respiratory: Airway is patent. GI: Abdomen is flat, Reports nausea. : No signs and/or symptoms were reported regarding the genitourinary system. EENT: No signs and/or symptoms were reported regarding the EENT system. Derm: Skin is intact. Musculoskeletal: No signs and/or symptoms reported regarding the musculoskeletal system. 18:16 Reassessment: Patient appears in no apparent distress at this time. Patient and/or rv family updated on plan of care and expected duration. Pain level reassessed. Patient is alert, oriented x 3, equal unlabored respirations, skin warm/dry/pink. AWAITING RADIOLOGY REPORT. Patient states feeling better. Vital Signs: 15:57 BP 108 / 73; Pulse 83; Resp 18; Temp 97.8(TE); Pulse Ox 99% on R/A; Weight 52.16 kg; hj Height 4 ft. 11 in. (149.86 cm); Pain 6/10; 16:52 BP 99 / 73; Pulse 50; Resp 14; Pulse Ox 100% on R/A; rv 17:30 BP 105 / 72; Pulse 62; Resp 15; Pulse Ox 98% ; rv 18:00 BP 120 / 88; Pulse 72; Resp 15; Pulse Ox 100% on R/A; rv 19:17 BP 110 / 78; Pulse 61; Resp 15; Pulse Ox 99% on R/A; rv 19:55 BP 110 / 79; Pulse 66; Resp 16; Temp 98; Pulse Ox 99% on R/A; rv 15:57 Body Mass Index 23.23 (52.16 kg, 149.86 cm) ED Course: 15:47 Patient arrived in ED. dl4 15:47 None, None is Private Physician. dl4 15:56 Triage completed. hj 15:57 Arm band placed on right wrist. hj 16:02 Chinyere Iniguez FNP-C [facility]. kb 16:02 Thai Rodas MD is Attending Physician. kb 16:30 Inserted saline lock: 22 gauge in right forearm, using aseptic technique. Blood rv collected. 16:40 Carrillo Gusman, JEOVANY is Primary Nurse. rv 16:49 Patient has correct armband on for positive identification. Placed in gown. Bed in low rv position. Call light in reach. Side rails up X 1. Pulse ox on. NIBP on. 17:50 CT Abd/Pelvis - IV Contrast Only In Process Unspecified. EDMS 19:55 No provider procedures requiring assistance completed. IV discontinued, intact, rv bleeding controlled, No redness/swelling at site. Pressure dressing applied. Administered Medications: 16:30 Drug: NS 0.9% 1000 ml Route: IV; Rate: 1000 ml; Site: right forearm; rv 19:54 Follow up: IV Status: Completed infusion rv 16:30 Drug: Zofran 4 mg Route: IVP; Site: right forearm; rv 17:35 Follow up: Response: No adverse reaction; Nausea is decreased rv Outcome: 19:46 Discharge ordered by MD. lewis 19:55 Discharged to home ambulatory, with friend. rv 19:55 Condition: improved 19:55 Discharge instructions given to patient, Instructed on discharge instructions, follow up and referral plans. medication usage, Demonstrated understanding of instructions, follow-up care, medications, Prescriptions given X 2. 19:56 Patient left the ED. rv Signatures: Dispatcher [employer] EDMS Chinyere Iniguez, [employer] OUTSIDE RESIDENTIAL SALES PROFESSIONAL-Renaldo Cartwright, RN RN Carrillo Pal RN RN Morris Rushing dl4 Corrections: (The following items were deleted from the chart) 15:58 15:57 52.16 kg; Height 4 ft. 11 in.; BMI: 23.2; Pain 6/10; hj hj 15:58 15:57 Pulse 83bpm; Resp 18bpm; Pulse Ox 99% RA; Temp 97.8F Temporal; 52.16 kg; Height 4 hj ft. 11 in.; BMI: 23.2; Pain 6/10; hj
--- NOTE | 2018-12-30 19:48 | EDPHYS ---
Physician Documentation [facility] Name: Ervin Iniguez Age: 33 yrs Sex: Female : 1985 Arrival Date: 12/30/2018 Time: 15:47 Bed 6 Private MD: None, None ED Physician Thai Rodas HPI: 12/30 23:08 This 33 yrs old Black Female presents to ER via Ambulatory with complaints of Nausea. kb 23:08 The patient presents to the emergency department with nausea, that is moderate, kb vomiting, 1 times since the onset of symptoms. Onset: The symptoms/episode began/occurred this morning. Possible causes: unknown. The symptoms are aggravated by nothing. The symptoms are alleviated by nothing. Associated signs and symptoms: Pertinent positives: abdominal pain, nausea, vomiting. Severity of symptoms: At their worst the symptoms were moderate in the emergency department the symptoms are unchanged. The patient has not experienced similar symptoms in the past. The patient has not recently seen a physician. 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 - Social history:: Smoking status: unknown. - Ebola Screening: : No symptoms or risks identified at this time. ROS: 23:05 Constitutional: Negative for fever, chills, and weight loss, Cardiovascular: Negative kb for chest pain, palpitations, and edema, Respiratory: Negative for shortness of breath, cough, wheezing, and pleuritic chest pain, Back: Negative for injury and pain, : Negative for injury, bleeding, discharge, and swelling, MS/Extremity: Negative for injury and deformity, Skin: Negative for injury, rash, and discoloration, Neuro: Negative for headache, weakness, numbness, tingling, and seizure. 23:05 Abdomen/GI: Positive for abdominal pain, nausea and vomiting. Exam: 23:05 Constitutional: This is a well developed, well nourished patient who is awake, alert, kb and in no acute distress. Head/Face: Normocephalic, atraumatic. Chest/axilla: Normal chest wall appearance and motion. Nontender with no deformity. No lesions are appreciated. Cardiovascular: Regular rate and rhythm with a normal S1 and S2. No gallops, murmurs, or rubs. Normal PMI, no JVD. No pulse deficits. Respiratory: Lungs have equal breath sounds bilaterally, clear to auscultation and percussion. No rales, rhonchi or wheezes noted. No increased work of breathing, no retractions or nasal flaring. Back: No spinal tenderness. No costovertebral tenderness. Full range of motion. Skin: Warm, dry with normal turgor. Normal color with no rashes, no lesions, and no evidence of cellulitis. MS/ Extremity: Pulses equal, no cyanosis. Neurovascular intact. Full, normal range of motion. Neuro: Awake and alert, GCS 15, oriented to person, place, time, and situation. Cranial nerves II-XII grossly intact. Motor strength 5/5 in all extremities. Sensory grossly intact. Cerebellar exam normal. Normal gait. 23:05 Abdomen/GI: Inspection: abdomen appears normal, Bowel sounds: normal, in all quadrants, Palpation: soft, in all quadrants, moderate abdominal tenderness, in the left lower quadrant. Vital Signs: 15:57 BP 108 / 73; Pulse 83; Resp 18; Temp 97.8(TE); Pulse Ox 99% on R/A; Weight 52.16 kg; hj Height 4 ft. 11 in. (149.86 cm); Pain 6/10; 16:52 BP 99 / 73; Pulse 50; Resp 14; Pulse Ox 100% on R/A; rv 17:30 BP 105 / 72; Pulse 62; Resp 15; Pulse Ox 98% ; rv 18:00 BP 120 / 88; Pulse 72; Resp 15; Pulse Ox 100% on R/A; rv 19:17 BP 110 / 78; Pulse 61; Resp 15; Pulse Ox 99% on R/A; rv 19:55 BP 110 / 79; Pulse 66; Resp 16; Temp 98; Pulse Ox 99% on R/A; rv 15:57 Body Mass Index 23.23 (52.16 kg, 149.86 cm) MDM: 16:03 Patient medically screened. kb 19:11 Data reviewed: vital signs, nurses notes. Data interpreted: Pulse oximetry: on room air kb is 100 %. Interpretation: normal. ED course: awaiting CT report. 19:46 Counseling: I had a detailed discussion with the patient and/or guardian regarding: the kb historical points, exam findings, and any diagnostic results supporting the discharge/admit diagnosis, lab results, radiology results, the need for outpatient follow up, an OB/Gyne specialist, to return to the emergency department if symptoms worsen or persist or if there are any questions or concerns that arise at home. 12/30 16:08 Order name: Basic Metabolic Panel; Complete Time: 16:54 kb 12/30 16:08 Order name: CBC with Diff; Complete Time: 16:39 kb 12/30 16:08 Order name: Hepatic Function; Complete Time: 16:54 kb 12/30 16:08 Order name: Lipase; Complete Time: 16:54 kb 12/30 16:54 Order name: Urine Dipstick--Ancillary (enter results); Complete Time: 17:22 bd 12/30 16:54 Order name: Urine --Ancillary (enter results); Complete Time: 17:22 bd 12/30 16:08 Order name: IV Saline Lock; Complete Time: 16:41 kb 12/30 16:08 Order name: Labs collected and sent; Complete Time: 16:41 kb 12/30 16:08 Order name: Urine Dipstick-Ancillary (obtain specimen); Complete Time: 16:47 kb 12/30 17:13 Order name: CT Abd/Pelvis - IV Contrast Only; Complete Time: 19:44 kb Administered Medications: 16:30 Drug: NS 0.9% 1000 ml Route: IV; Rate: 1000 ml; Site: right forearm; rv 19:54 Follow up: IV Status: Completed infusion rv 16:30 Drug: Zofran 4 mg Route: IVP; Site: right forearm; rv 17:35 Follow up: Response: No adverse reaction; Nausea is decreased rv Disposition: 12/31 06:55 Co-signature as Attending Physician, Thai Rodas MD. rn Disposition: 12/30/18 19:46 Discharged to Home. Impression: Lower abdominal pain, unspecified, Nausea and vomiting. - Condition is Stable. - Discharge Instructions: Nausea and Vomiting, Adult, [id number], Ovarian Cyst, [id number]. - Prescriptions for Zofran 4 mg Oral Tablet - take 1 tablet by ORAL route every 6 hours As needed; 20 tablet. Diclofenac Sodium 75 mg Oral Tablet, Delayed Release (E.C.) - take 1 tablet by ORAL route 2 times per day As needed; 30 tablet. - Medication Reconciliation Form, Thank You Letter, Antibiotic Education, Prescription Opioid Use, Work release form form. - Follow up: Emergency Department; When: As needed; Reason: Worsening of condition. Follow up: Private Physician; When: 2 - 3 days; Reason: Recheck today's complaints, Continuance of care, Re-evaluation by your physician. Signatures: Dispatcher [employer] EDTN Chinyere Iniguez, COMPLIANCE AND CONTROL ANALYST-C COMPLIANCE AND CONTROL ANALYST-Ckb Thai Rodas MD MD rn Joaquin, Henry, RN RN Carrillo Pal RN RN rv Corrections: (The following items were deleted from the chart) 12/30 19:56 19:46 12/30/2018 19:46 Discharged to Home. Impression: Lower abdominal pain, rv unspecified; Nausea and vomiting. Condition is Stable. Forms are Medication Reconciliation Form, Thank You Letter, Antibiotic Education, Prescription Opioid Use. Follow up: Emergency Department; When: As needed; Reason: Worsening of condition. Follow up: Private Physician; When: 2 - 3 days; Reason: Recheck today's complaints, Continuance of care, Re-evaluation by your physician. kb
== END 2018-12-30 19:56 | disposition home or self-care (01) ==
LOC: ER 15:47
DX: R11.2 Nausea with vomiting, unspecified (principal); R10.30 Lower abdominal pain, unspecified; Z91.013 Allergy to seafood
CPT/HCPCS: 36415; 74177; 80048; 80076; 81003; 81025; 83690; 85025; 96361; 96374; 99284; J2405; J7030; Q9967

== ENCOUNTER 2019-01-18 04:18 | Emergency (ER) | payer SELFPAY ==
[2019-01-18 05:18] LABS: Absolute Lymphocytes (CBC) 2.8 K/uL (0.7-4.9); Lymphocytes % 25.9 % (15.3-44.8); MPV 10.6 fL (7.6-11.3); RBC Red Blood Cell Count 4.34 M/uL (3.86-4.86)
[2019-01-18 05:35] LABS: ALT/SGPT 21 U/L (12-78); AST/SGOT 24 U/L (15-37); Albumin 4.4 g/dL (3.4-5.0); Alkaline Phosphatase 52 U/L (45-117); BUN Blood Urea Nitrogen 9 mg/dL (7-18); Bicarbonate 29 mmol/L (21-32); Bilirubin Direct 0.2 mg/dL (0-0.2); Bilirubin Total 0.9 mg/dL (0.2-1.0); Glucose Level 80 mg/dL (74-106); Lipase 61 U/L (73-393); Potassium 3.4 mmol/L (3.5-5.1); Protein, Total 8.1 g/dL (6.4-8.2); Sodium Level 142 mmol/L (136-145)
[2019-01-18 05:39] LABS: Urine Blood 2+ (NEG); Urine Glucose NEGATIVE (NEG); Urine Protein TRACE (NEG); Urine pH 5.5 (5.0-7.0)
[2019-01-18] MEDS ORDERED: KETOROLAC 30 MG/ML INJ ONE (05:48)
[2019-01-18] MEDS ORDERED: ONDANSETRON 4 MG/2 ML VIAL ONE (05:48)
--- NOTE | 2019-01-18 06:32 | ER ---
Nurse's Notes [facility] Name: Ervin Iniguez Age: 33 yrs Sex: Female : 1985 Arrival Date: 01/18/2019 Time: 04:20 Bed 5 Private MD: Diagnosis: Nausea Presentation: 01/18 04:39 Presenting complaint: Patient states: she has had nausea and fatigue x 2 days. aa1 Transition of care: patient was not received from another setting of care. Onset of symptoms was January 16, 2019. Risk Assessment: Do you want to hurt yourself or someone else? Patient reports no desire to harm self or others. Initial Sepsis Screen: Does the patient meet any 2 criteria? No. Patient's initial sepsis screen is negative. Does the patient have a suspected source of infection? No. Patient's initial sepsis screen is negative. Care prior to arrival: None. 04:39 Method Of Arrival: Ambulatory aa1 04:39 Acuity: MARGARET 3 aa1 Triage Assessment: 04:45 General: Appears in no apparent distress. comfortable, Behavior is calm, cooperative, aa1 appropriate for age. 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 - Social history:: Smoking status: Patient uses tobacco products, smokes one-half pack cigarettes per day. - Ebola Screening: : No symptoms or risks identified at this time. Screenin:47 Abuse screen: Denies threats or abuse. Denies injuries from another. Nutritional ak1 screening: No deficits noted. Tuberculosis screening: No symptoms or risk factors identified. Fall Risk None identified. Assessment: 04:47 General: Appears in no apparent distress. Behavior is calm, cooperative. Pain: ak1 Complains of pain in abdomen. Neuro: No deficits noted. Cardiovascular: No deficits noted. Respiratory: No deficits noted. GI: Abdomen is flat, Reports nausea. : No signs and/or symptoms were reported regarding the genitourinary system. EENT: No signs and/or symptoms were reported regarding the EENT system. Derm: No signs and/or symptoms reported regarding the dermatologic system. Musculoskeletal: No signs and/or symptoms reported regarding the musculoskeletal system. 05:15 Reassessment: Patient and/or family updated on plan of care and expected duration. Pain ea level reassessed. Patient is alert, oriented x 3, equal unlabored respirations, skin warm/dry/pink. 06:15 Reassessment: Patient and/or family updated on plan of care and expected duration. Pain ea level reassessed. Patient is alert, oriented x 3, equal unlabored respirations, skin warm/dry/pink. 06:42 Reassessment: Patient and/or family updated on plan of care and expected duration. Pain ea level reassessed. Patient is alert, oriented x 3, equal unlabored respirations, skin warm/dry/pink. Discharge instruction given to patient, verbalized the understanding of instruction. Pt left ED ambulatory accompanied by significant other. Vital Signs: 04:45 BP 114 / 80; Pulse 97; Resp 16; Temp 97.9; Pulse Ox 98% on R/A; Weight 52.16 kg; Height aa1 4 ft. 11 in. (149.86 cm); Pain 0/10; 05:10 BP 126 / 86; Pulse 85; Resp 16; Temp 98; Pulse Ox 99% on R/A; ak1 06:34 BP 123 / 71; Pulse 66; Resp 18; Pulse Ox 99% on R/A; ea 04:45 Body Mass Index 23.23 (52.16 kg, 149.86 cm) aa1 ED Course: 04:20 Patient arrived in ED. am2 04:42 Kedar Lozano MD is Attending Physician. tw4 04:42 Triage completed. aa1 04:45 Arm band placed on right wrist. Patient placed in an exam room, on a stretcher. aa1 04:47 Patient has correct armband on for positive identification. Bed in low position. Call ak1 light in reach. Side rails up X 1. Pulse ox on. NIBP on. 04:53 Nataly Branch RN is Primary Nurse. ea 05:11 Initial lab(s) drawn, by co, sent to lab. Urine collected: clean catch specimen. ak1 Inserted saline lock: 22 gauge in right antecubital area, using aseptic technique. Blood collected. 06:33 No provider procedures requiring assistance completed. IV discontinued, intact, ea bleeding controlled, No redness/swelling at site. Pressure dressing applied. 06:35 Miguel Askew MD is Referral Physician. tw4 06:35 Yemi Owen MD is Referral Physician. tw4 06:35 Bo Carrero MD is Referral Physician. tw4 06:35 Margarita Win MD is Referral Physician. tw4 Administered Medications: 05:53 Drug: Zofran 4 mg Route: IVP; Site: right antecubital; ea 06:35 Follow up: Response: No adverse reaction ea 05:53 Drug: TORadol 30 mg Route: IVP; Site: right antecubital; ea 06:34 Follow up: Response: No adverse reaction ea Outcome: 06:31 Discharge ordered by MD. tw4 06:44 Discharged to home ambulatory, with significant other. ea 06:44 Condition: stable 06:44 Instructed on discharge instructions, follow up and referral plans. medication usage, Demonstrated understanding of instructions, follow-up care, medications, Prescriptions given X 2. 06:44 Patient left the ED. ea Signatures: Marie Frye, RN RN aa1 Neda Beatty RN RN ward1 Mayelin Guy am2 Nataly Branch RN RN Kedar Zuniga MD MD tw4 Corrections: (The following items were deleted from the chart) 04:48 04:45 BP 114 / 0; Pulse 97bpm; Resp 16bpm; Pulse Ox 98% RA; Temp 97.9F; 52.16 kg; aa1 Height 4 ft. 11 in.; BMI: 23.2; Pain 0/10; aa1
--- NOTE | 2019-01-18 06:33 | EDPHYS ---
Physician Documentation [facility] Name: Ervin Iniguez Age: 33 yrs Sex: Female : 1985 Arrival Date: 01/18/2019 Time: 04:20 Bed 5 Private MD: ED Physician Kedar Lozano HPI: 01/18 04:59 This 33 yrs old Black Female presents to ER via Ambulatory with complaints of Nausea, tw4 General Weakness. 04:59 The patient presents to the emergency department with nausea, that is mild. Onset: The tw4 symptoms/episode began/occurred today. Possible causes: unknown. The symptoms are aggravated by nothing. The symptoms are alleviated by nothing. Severity of symptoms: At their worst the symptoms were moderate in the emergency department the symptoms are unchanged. 06:33 Associated signs and symptoms: Pertinent positives: abdominal pain. The patient has tw4 experienced similar episodes in the past, chronically, with the last episode occurring 2 week(s) ago, today's symptoms are similar, and the symptoms today are exactly the same. 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 - Social history:: Smoking status: Patient uses tobacco products, smokes one-half pack cigarettes per day. - Ebola Screening: : No symptoms or risks identified at this time. ROS: 04:59 Constitutional: Negative for fever, chills, and weight loss, Eyes: Negative for injury, tw4 pain, redness, and discharge, Cardiovascular: Negative for chest pain, palpitations, and edema, Respiratory: Negative for shortness of breath, cough, wheezing, and pleuritic chest pain, Abdomen/GI: Negative for abdominal pain, nausea, vomiting, diarrhea, and constipation, Back: Negative for injury and pain, MS/Extremity: Negative for injury and deformity. Exam: 04:59 Constitutional: This is a well developed, well nourished patient who is awake, alert, tw4 and in no acute distress. Head/Face: Normocephalic, atraumatic. Chest/axilla: Normal chest wall appearance and motion. Nontender with no deformity. No lesions are appreciated. Cardiovascular: Regular rate and rhythm with a normal S1 and S2. No gallops, murmurs, or rubs. Normal PMI, no JVD. No pulse deficits. Respiratory: Lungs have equal breath sounds bilaterally, clear to auscultation and percussion. No rales, rhonchi or wheezes noted. No increased work of breathing, no retractions or nasal flaring. MS/ Extremity: Pulses equal, no cyanosis. Neurovascular intact. Full, normal range of motion. 04:59 Abdomen/GI: Inspection: abdomen appears normal, Bowel sounds: normal, Palpation: abdomen is soft and non-tender. Vital Signs: 04:45 BP 114 / 80; Pulse 97; Resp 16; Temp 97.9; Pulse Ox 98% on R/A; Weight 52.16 kg; Height aa1 4 ft. 11 in. (149.86 cm); Pain 0/10; 05:10 BP 126 / 86; Pulse 85; Resp 16; Temp 98; Pulse Ox 99% on R/A; ak1 06:34 BP 123 / 71; Pulse 66; Resp 18; Pulse Ox 99% on R/A; ea 04:45 Body Mass Index 23.23 (52.16 kg, 149.86 cm) aa1 MDM: 04:42 Patient medically screened. tw4 06:28 Differential diagnosis: Nonspecific abd pain, gastritis, cholecystitis. Data reviewed: tw4 vital signs, nurses notes. Data interpreted: Pulse oximetry: Interpretation: normal. Counseling: I had a detailed discussion with the patient and/or guardian regarding: the historical points, exam findings, and any diagnostic results supporting the discharge/admit diagnosis. Special discussion: I discussed with the patient/guardian in detail that at this point there is no indication for admission to the hospital. It is understood, however, that if the symptoms persist or worsen the patient needs to return immediately for re-evaluation. 06:33 Medication response: Toradol markedly relieved the patient's pain. Response to tw4 treatment: and as a result, I will discharge patient. Special discussion: Based on the patient's Hx, exam, and Dx evaluation, there is no indication for emergent surgery or inpatient Tx. It is understood by the patient/guardian that if the Sx's persist or worsen they need to return immediately for re-evaluation. ED course: Pt has had multiple visits and imaging studies for similar complaints this year. All studies have been negative and pt has not followed up> Pt given followup instructions. 01/18 04:44 Order name: Basic Metabolic Panel; Complete Time: 05:46 tw4 01/18 06:17 Interpretation: Normal except: K 3.4; CL 108. 4 01/18 04:44 Order name: CBC with Diff; Complete Time: 05:46 4 01/18 06:16 Interpretation: Within normal limits: WBC 10.7. 01/18 04:44 Order name: Creatinine for Radiology; Complete Time: 05:46 tw4 01/18 06:16 Interpretation: Within normal limits: CRE 0.82. 01/18 04:44 Order name: Hepatic Function; Complete Time: 05:46 tw4 01/18 04:44 Order name: Lipase; Complete Time: 05:46 4 01/18 05:35 Order name: Urine Dipstick--Ancillary (enter results); Complete Time: 05:46 mt 01/18 04:44 Order name: IV Saline Lock; Complete Time: 05:10 tw4 01/18 06:17 Interpretation: Within normal limits. 01/18 04:44 Order name: Labs collected and sent; Complete Time: 05:10 01/18 04:44 Order name: Urine Dipstick-Ancillary (obtain specimen); Complete Time: 05:10 tw4 01/18 04:44 Order name: Urine Test (obtain specimen); Complete Time: 05:10 4 01/18 05:35 Order name: Urine --Ancillary (enter results); Complete Time: 05:46 mt Administered Medications: 05:53 Drug: Zofran 4 mg Route: IVP; Site: right antecubital; ea 06:35 Follow up: Response: No adverse reaction ea 05:53 Drug: TORadol 30 mg Route: IVP; Site: right antecubital; ea 06:34 Follow up: Response: No adverse reaction ea Disposition: 01/18/19 06:31 Discharged to Home. Impression: Nausea. - Condition is Stable. - Discharge Instructions: Chronic Pain, Nausea, Adult. - Prescriptions for Ibuprofen 800 mg Oral Tablet - take 1 tablet by ORAL route every 12 hours As needed take with food; 20 tablet. Zofran 4 mg Oral Tablet - take 1 tablet by ORAL route every 12 hours As needed; 6 tablet. - Work release form, Family Work Release, Medication Reconciliation Form, Thank You Letter, Antibiotic Education, Prescription Opioid Use form. - Follow up: Private Physician; When: Upon discharge from the Emergency Department; Reason: If symptoms return, Recheck today's complaints, Continuance of care. Follow up: Miguel Askew MD; When: Tomorrow; Reason: If symptoms return, Recheck today's complaints, Continuance of care. Follow up: Yemi Owen MD; When: Tomorrow; Reason: If symptoms return, Recheck today's complaints, Continuance of care. Follow up: Bo Carrero MD; When: Tomorrow; Reason: If symptoms return, Recheck today's complaints, Continuance of care. Follow up: Margarita Win MD; When: Tomorrow; Reason: If symptoms return, Recheck today's complaints, Continuance of care. - Problem is new. - Symptoms have improved. Signatures: Dispatcher [employer] EDMarie Pena RN RN aa1 Nataly Branch RN RN Kedar Zuniga MD MD tw4 Corrections: (The following items were deleted from the chart) 06:33 04:59 Associated signs and symptoms: The patient has no apparent associated signs or tw4 symptoms, tw4 06:33 04:59 The patient has not experienced similar symptoms in the past, tw4 tw4 06:35 06:31 01/18/2019 06:31 Discharged to Home. Impression: Nausea. Condition is Stable. tw4 Forms are Medication Reconciliation Form, Thank You Letter, Antibiotic Education, Prescription Opioid Use. Follow up: Private Physician; When: Upon discharge from the Emergency Department; Reason: If symptoms return, Recheck today's complaints, Continuance of care. Problem is new. Symptoms have improved. tw4 06:44 06:35 01/18/2019 06:31 Discharged to Home. Impression: Nausea. Condition is Stable. ea Forms are Medication Reconciliation Form, Thank You Letter, Antibiotic Education, Prescription Opioid Use. Follow up: Private Physician; When: Upon discharge from the Emergency Department; Reason: If symptoms return, Recheck today's complaints, Continuance of care. Follow up: Miguel Askew; When: Tomorrow; Reason: If symptoms return, Recheck today's complaints, Continuance of care. Follow up: Yemi Owen; When: Tomorrow; Reason: If symptoms return, Recheck today's complaints, Continuance of care. Follow up: Bo Carrero; When: Tomorrow; Reason: If symptoms return, Recheck today's complaints, Continuance of care. Follow up: Margarita Win; When: Tomorrow; Reason: If symptoms return, Recheck today's complaints, Continuance of care. Problem is new. Symptoms have improved. tw4
== END 2019-01-18 06:44 | disposition home or self-care (01) ==
LOC: ER 04:18
DX: R11.0 Nausea (principal); F17.210 Nicotine dependence, cigarettes, uncomplicated; Z91.013 Allergy to seafood
CPT/HCPCS: 36415; 80048; 80076; 81003; 81025; 83690; 85025; 96374; 96375; 99284; J2405

== ENCOUNTER 2019-02-08 08:51 | Emergency (ER) | payer SELFPAY ==
[2019-02-08] MEDS ORDERED: KETOROLAC 30 MG/ML INJ ONE (09:17)
[2019-02-08 09:55] LABS: Absolute Lymphocytes (CBC) 4.5 K/uL (0.7-4.9); Basophils % 0.6 % (0-1.3); Hematocrit 42.1 % (36.0-45.0); Lymphocytes % 36.3 % (15.3-44.8); MPV 10.4 fL (7.6-11.3)
[2019-02-08 10:06] LABS: Urine Blood NEGATIVE (NEG); Urine Glucose NEGATIVE (NEG); Urine Protein NEGATIVE (NEG); Urine Specific Gravity 1.015 (1.005-1.030)
[2019-02-08 10:10] LABS: BUN Blood Urea Nitrogen 14 mg/dL (7-18); Bicarbonate 23 mmol/L (21-32); Glucose Level 135 mg/dL (74-106); Potassium 3.1 mmol/L (3.5-5.1); Sodium Level 141 mmol/L (136-145); Troponin (Emerg Dept Use Only) < 0.02 ng/mL (0.0-0.045)
[2019-02-08] MEDS ORDERED: POTASSIUM CL SA 10 MEQ TAB PO ONE (10:18)
--- NOTE | 2019-02-08 10:21 | EDPHYS ---
Physician Documentation [facility] Name: Ervin Iniguez Age: 33 yrs Sex: Female : 1985 Arrival Date: 02/08/2019 Time: 08:52 Bed 18 Private MD: ED Physician Thai Rodas HPI: 02/08 10:15 This 33 yrs old Black Female presents to ER via Ambulatory with complaints of Chest jr8 Pain. 10:15 The patient or guardian reports chest pain that is located primarily in the substernal jr8 area. The pain does not radiate. Associated signs and symptoms: The patient has no apparent associated signs or symptoms. The chest pain is described as sharp, stabbing. Duration: The patient or guardian reports multiple episodes. Modifying factors: The symptoms are alleviated by nothing. the symptoms are aggravated by deep breath, palpation of area. Severity of pain: At its worst the pain was moderate in the emergency department the pain is unchanged. The patient has not experienced similar symptoms in the past. The patient has not recently seen a physician. 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 - Social history:: Smoking status: Patient uses tobacco products, smokes one-half pack cigarettes per day. - Ebola Screening: : Patient negative for fever greater than or equal to 101.5 degrees Fahrenheit, and additional compatible Ebola Virus Disease symptoms Patient denies exposure to infectious person Patient denies travel to an Ebola-affected area in the 21 days before illness onset No symptoms or risks identified at this time. ROS: 10:15 Eyes: Negative for injury, pain, redness, and discharge, ENT: Negative for injury, jr8 pain, and discharge, Neck: Negative for injury, pain, and swelling, Respiratory: Negative for shortness of breath, cough, wheezing, and pleuritic chest pain, Abdomen/GI: Negative for abdominal pain, nausea, vomiting, diarrhea, and constipation, Back: Negative for injury and pain, MS/Extremity: Negative for injury and deformity, Skin: Negative for injury, rash, and discoloration, Neuro: Negative for headache, weakness, numbness, tingling, and seizure. 10:15 Cardiovascular: Positive for chest pain, Negative for edema, orthopnea, palpitations, paroxysmal nocturnal dyspnea. Exam: 10:15 Eyes: Pupils equal round and reactive to light, extra-ocular motions intact. Lids and jr8 lashes normal. Conjunctiva and sclera are non-icteric and not injected. Cornea within normal limits. Periorbital areas with no swelling, redness, or edema. ENT: Nares patent. No nasal discharge, no septal abnormalities noted. Tympanic membranes are normal and external auditory canals are clear. Oropharynx with no redness, swelling, or masses, exudates, or evidence of obstruction, uvula midline. Mucous membranes moist. Neck: Trachea midline, no thyromegaly or masses palpated, and no cervical lymphadenopathy. Supple, full range of motion without nuchal rigidity, or vertebral point tenderness. No Meningismus. Cardiovascular: Regular rate and rhythm with a normal S1 and S2. No gallops, murmurs, or rubs. Normal PMI, no JVD. No pulse deficits. Respiratory: Lungs have equal breath sounds bilaterally, clear to auscultation and percussion. No rales, rhonchi or wheezes noted. No increased work of breathing, no retractions or nasal flaring. Abdomen/GI: Soft, non-tender, with normal bowel sounds. No distension or tympany. No guarding or rebound. No evidence of tenderness throughout. Back: No spinal tenderness. No costovertebral tenderness. Full range of motion. Skin: Warm, dry with normal turgor. Normal color with no rashes, no lesions, and no evidence of cellulitis. MS/ Extremity: Pulses equal, no cyanosis. Neurovascular intact. Full, normal range of motion. Neuro: Awake and alert, GCS 15, oriented to person, place, time, and situation. Cranial nerves II-XII grossly intact. Motor strength 5/5 in all extremities. Sensory grossly intact. Cerebellar exam normal. Normal gait. 10:15 Chest/axilla: Inspection: normal, Palpation: tenderness, that is moderate, of the mid-sternal area and just to the right and left sternal borders, that totally reproduces the patient's complaints, Lymph nodes: lymphadenopathy is not appreciated. Vital Signs: 09:12 BP 113 / 84; Pulse 88; Resp 20; Temp 98.8(O); Pulse Ox 100% on R/A; Weight 52.16 kg; em Height 4 ft. 11 in. (149.86 cm); Pain 10/10; 10:40 BP 116 / 86; Pulse 79; Resp 18; Pulse Ox 99% on R/A; Pain 10/10; em 09:12 Body Mass Index 23.23 (52.16 kg, 149.86 cm) em 10:40 pt laughing and joking with brother, provider notified em MDM: 09:02 Patient medically screened. 8 10:15 Differential diagnosis: abnormal EKG, acute myocardial infarction, acute pericarditis, jr8 anxiety, chest wall pain, cholecystitis, Cholelithiasis costochondritis, esophagitis, gastritis, gastroesophageal reflux disease (GERD), pancreatitis, pleurisy, pneumonia, pneumothorax, pulmonary embolus, unstable angina. Data reviewed: vital signs, nurses notes, lab test result(s), EKG, radiologic studies, plain films. Data interpreted: Pulse oximetry: on room air is 100 %. Interpretation: normal. Counseling: I had a detailed discussion with the patient and/or guardian regarding: the historical points, exam findings, and any diagnostic results supporting the discharge/admit diagnosis, lab results, radiology results, the need for outpatient follow up, a family practitioner, to return to the emergency department if symptoms worsen or persist or if there are any questions or concerns that arise at home. 02/08 09:08 Order name: CBC with Diff; Complete Time: 10:13 [facility] 02/08 09:08 Order name: Basic Metabolic Panel; Complete Time: 10:13 [facility] 02/08 09:08 Order name: XRAY Chest (1 view) [facility] 02/08 09:08 Order name: Troponin (emerg Dept Use Only); Complete Time: 10:13 8 02/08 09:09 Order name: Urine Dipstick--Ancillary (enter results); Complete Time: 10:13 02/08 09:09 Order name: Urine --Ancillary (enter results); Complete Time: 10:13 02/08 09:08 Order name: EKG - Nurse/Tech; Complete Time: 09:17 [facility] 02/08 09:08 Order name: IV; Complete Time: 09:26 [facility] Administered Medications: 09:24 Drug: TORadol - Ketorolac 15 mg Route: IVP; Site: right antecubital; ss 09:55 Follow up: Response: No adverse reaction; Pain is unchanged, physician notified em 10:42 Drug: Potassium Chloride 40 mEq Route: PO; em 10:51 Follow up: Response: Medication administered at discharge. em Disposition: 11:12 Co-signature as Attending Physician, Thai Rodas MD. rn Disposition: 02/08/19 10:20 Discharged to Home. Impression: Chondrocostal junction syndrome [Tietze], Chest pain on breathing. - Condition is Stable. - Discharge Instructions: Chest Wall Pain, Costochondritis. - Prescriptions for Ibuprofen 800 mg Oral Tablet - take 1 tablet by ORAL route every 8 hours As needed take with food; 30 tablet. - Work release form, Medication Reconciliation Form, Thank You Letter, Antibiotic Education, Prescription Opioid Use form. - Follow up: Private Physician; When: 2 - 3 days; Reason: Recheck today's complaints, Continuance of care, Re-evaluation by your physician. - Problem is new. - Symptoms have improved. Signatures: Dispatcher [employer] EDNE Balbir Hoover, LIQUID HYDROGEN PLANT OPERATOR LIQUID HYDROGEN PLANT OPERATOR Thai Rodas MD MD rn Smirch, Shelby, RN RN ss Roszak, Josh, PA PA jr8 Corrections: (The following items were deleted from the chart) 10:51 10:20 02/08/2019 10:20 Discharged to Home. Impression: Chondrocostal junction syndrome em [Tietze]; Chest pain on breathing. Condition is Stable. Forms are Medication Reconciliation Form, Thank You Letter, Antibiotic Education, Prescription Opioid Use. Follow up: Private Physician; When: 2 - 3 days; Reason: Recheck today's complaints, Continuance of care, Re-evaluation by your physician. Problem is new. Symptoms have improved. jr8
--- NOTE | 2019-02-08 10:21 | ER ---
Nurse's Notes [facility] Name: Ervin Iniguez Age: 33 yrs Sex: Female : 1985 Arrival Date: 02/08/2019 Time: 08:52 Bed 18 Private MD: Diagnosis: Chondrocostal junction syndrome [Tietze];Chest pain on breathing Presentation: 02/08 09:06 Acuity: MARGARET 3 ss 09:09 Presenting complaint: Patient states: mid substernal chest pain that radiates to back em started 2 nights ago, denies cough, N/V, reports pain when taking a deep breath. Transition of care: patient was not received from another setting of care. Onset of symptoms was February 06, 2019. Risk Assessment: Do you want to hurt yourself or someone else? Patient reports no desire to harm self or others. Initial Sepsis Screen: Does the patient meet any 2 criteria? No. Patient's initial sepsis screen is negative. Does the patient have a suspected source of infection? No. Patient's initial sepsis screen is negative. Care prior to arrival: None. 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 - Social history:: Smoking status: Patient uses tobacco products, smokes one-half pack cigarettes per day. - Ebola Screening: : Patient negative for fever greater than or equal to 101.5 degrees Fahrenheit, and additional compatible Ebola Virus Disease symptoms Patient denies exposure to infectious person Patient denies travel to an Ebola-affected area in the 21 days before illness onset No symptoms or risks identified at this time. Screenin:13 Abuse screen: Denies threats or abuse. Nutritional screening: No deficits noted. em Tuberculosis screening: No symptoms or risk factors identified. Fall Risk None identified. Assessment: 09:12 General: Appears in no apparent distress. comfortable, Behavior is calm, cooperative, em Denies fever. Pain: Complains of pain in mid-sternal area Pain radiates to back Pain began 2-3 days ago. Neuro: Level of Consciousness is awake, alert, obeys commands, Oriented to person, place, time, situation, Appropriate for age. Cardiovascular: Reports chest pain, shortness of breath, Denies diaphoresis, nausea, vomiting, Heart tones S1 S2 present Capillary refill < 3 seconds Patient's skin is warm and dry. Rhythm is sinus rhythm. Respiratory: Airway is patent Respiratory effort is even, unlabored, Respiratory pattern is regular, symmetrical. Derm: Skin is intact, is healthy with good turgor, Skin is pink, warm \T\ dry. Musculoskeletal: Capillary refill < 3 seconds, Range of motion: intact in all extremities. 10:40 Reassessment: Patient appears in no apparent distress at this time. Patient and/or em family updated on plan of care and expected duration. Pain level reassessed. Patient is alert, oriented x 3, equal unlabored respirations, skin warm/dry/pink. Vital Signs: 09:12 BP 113 / 84; Pulse 88; Resp 20; Temp 98.8(O); Pulse Ox 100% on R/A; Weight 52.16 kg; em Height 4 ft. 11 in. (149.86 cm); Pain 10/10; 10:40 BP 116 / 86; Pulse 79; Resp 18; Pulse Ox 99% on R/A; Pain 10/10; em 09:12 Body Mass Index 23.23 (52.16 kg, 149.86 cm) em 10:40 pt laughing and joking with brother, provider notified em ED Course: 08:52 Patient arrived in ED. as 09:02 Balbir Hovoer LVN is Primary Nurse. em 09:02 Jose Barbosa PA is PHCP. jr8 09:02 Thai Rodas MD is Attending Physician. jr8 09:06 Triage completed. ss 09:12 Arm band placed on. em 09:13 Patient has correct armband on for positive identification. Placed in gown. Bed in low em position. Call light in reach. Adult w/ patient. engine monitor on. Pulse ox on. NIBP on. 09:13 Patient maintains SpO2 saturation greater than 95% on room air. em 09:17 EKG done, by ED staff, reviewed by Jose ANDINO. ms 09:30 Initial lab(s) drawn, by me, sent to lab. Inserted saline lock: 22 gauge in right em antecubital area, using aseptic technique. Blood collected. 09:56 X-ray completed. Portable x-ray completed in exam room. Patient tolerated procedure mh1 well. 09:58 XRAY Chest (1 view) In Process Unspecified. EDMS 10:49 No provider procedures requiring assistance completed. IV discontinued, intact, em bleeding controlled, No redness/swelling at site. Pressure dressing applied. Administered Medications: 09:24 Drug: TORadol - Ketorolac 15 mg Route: IVP; Site: right antecubital; ss 09:55 Follow up: Response: No adverse reaction; Pain is unchanged, physician notified em 10:42 Drug: Potassium Chloride 40 mEq Route: PO; em 10:51 Follow up: Response: Medication administered at discharge. em Outcome: 10:20 Discharge ordered by . cammie 10:49 Discharged to home ambulatory, with family. em 10:49 Condition: good 10:49 Discharge instructions given to patient, Instructed on discharge instructions, follow up and referral plans. medication usage, Demonstrated understanding of instructions, follow-up care, medications, Prescriptions given X 1. 10:51 Patient left the ED. em Signatures: Dispatcher [employer] EDMS Keisha Brandt 1 Balbir Hoover, DIRECTOR OF CREATIVE SERVICES DIRECTOR OF CREATIVE SERVICES em Rosie Hannah Maria ms Cristina De La Paz, JEOVANY RN Jose Barbosa PA PA jr8
--- NOTE | 2019-02-08 12:57 | RAD REPORT ---
EXAM DESCRIPTION: RAD - Chest Single View - 02/08/2019 9:58 am CLINICAL HISTORY: CHEST PAIN Chest pain. COMPARISON: No comparisons FINDINGS: Portable technique limits examination quality. The lungs are grossly clear. The heart is normal in size. No displaced fractures. IMPRESSION: No acute intrathoracic process suspected.
[2019-02-08 13:44] VITALS: BP 116/86
[2019-02-08 13:53] VITALS: TEMP 97.5; O2SAT 100
--- NOTE | 2019-02-09 16:58 | EKG ---
Test Date: 2019-02-08 Test Time: 09:15:38 Gem Stone Cutter: MEASUREMENT RESULTS: Intervals: Rate: 60 MA: 140 QRSD: 80 QT: 390 QTc: 390 [place]: P: 67 MA: 140 QRS: 87 T: 66 INTERPRETIVE STATEMENTS: Normal sinus rhythm Right atrial enlargement Borderline ECG No previous ECG available for comparison Electronically Signed On 02-09-19 16:55:30 CDT by Chriss Amezquita
== END 2019-02-08 10:51 | disposition home or self-care (01) ==
LOC: ER 08:51
DX: M94.0 Chondrocostal junction syndrome [Tietze] (principal); F17.210 Nicotine dependence, cigarettes, uncomplicated; Z91.013 Allergy to seafood
CPT/HCPCS: 36415; 71045; 80048; 81003; 81025; 84484; 85025; 93005; 96374; 99285

== ENCOUNTER 2019-02-14 16:18 | Emergency (ER) | payer SELFPAY ==
[2019-02-14] MEDS ORDERED: FAMOTIDINE 20 MG/2 ML VIAL IV ONE (17:35)
[2019-02-14 18:01] LABS: Absolute Lymphocytes (CBC) 3.2 K/uL (0.7-4.9); Basophils % 0.7 % (0-1.3); Hematocrit 39.8 % (36.0-45.0); Lymphocytes % 32.8 % (15.3-44.8); RBC Red Blood Cell Count 4.11 M/uL (3.86-4.86)
[2019-02-14 18:08] LABS: Albumin 3.9 g/dL (3.4-5.0); Bilirubin Direct 0.3 mg/dL (0-0.2); Bilirubin Total 1.2 mg/dL (0.2-1.0); Potassium 3.2 mmol/L (3.5-5.1); Protein, Total 7.3 g/dL (6.4-8.2)
[2019-02-14] MEDS ORDERED: POTASSIUM CL SA 10 MEQ TAB PO ONE (18:48)
--- NOTE | 2019-02-14 18:56 | RAD REPORT ---
EXAM DESCRIPTION: CT - Abdomen Pelvis W Contrast - 02/14/2019 6:42 pm CLINICAL HISTORY: Abdominal pain COMPARISON: December 2018 TECHNIQUE: Computed axial tomography of the abdomen pelvis was obtained. 100 cc Isovue-300 was admin istered intravenously. Oral contrast was not requested which limits evaluation of bowel. All CT scans are performed using dose optimization technique as appropriate and may include automated exposure control or mA/KV adjustment according to patient size. FINDINGS: The liver, spleen, pancreas, adrenal and kidneys appear unremarkable. There is no evidence of diverticulitis. Fluid within nondilated small bowel IMPRESSION: Fluid within nondilated small bowel may indicate an enteritis
--- NOTE | 2019-02-14 19:31 | EDPHYS ---
Physician Documentation [facility] Name: Ervin Iniguez Age: 33 yrs Sex: Female : 1985 Arrival Date: 02/14/2019 Time: 16:20 Bed 25 Private MD: ED Physician Get Cox HPI: 02/14 18:38 This 33 yrs old Black Female presents to ER via Ambulatory with complaints of Abdominal kdr Pain. 18:38 The patient presents with abdominal pain in the epigastric area. Onset: The kdr symptoms/episode began/occurred gradually, at an unknown time, and became worse 2 day(s) ago. The symptoms do not radiate. Associated signs and symptoms: Pertinent positives: nausea, Possible worms in stool, Pertinent negatives: anorexia, blood in stools, chest pain, constipation, diarrhea, dysuria, fever, headache, hematuria. The symptoms are described as burning. Modifying factors: The symptoms are alleviated by nothing, the symptoms are aggravated by food, spicy food. Severity of pain: At its worst the pain was mild moderate just prior to arrival, in the emergency department the pain has improved mildly. The patient has not experienced similar symptoms in the past. The patient has not recently seen a physician. 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 - Social history:: Smoking status: Patient/guardian denies using tobacco. - Ebola Screening: : Patient negative for fever greater than or equal to 101.5 degrees Fahrenheit, and additional compatible Ebola Virus Disease symptoms Patient denies exposure to infectious person Patient denies travel to an Ebola-affected area in the 21 days before illness onset No symptoms or risks identified at this time. ROS: 18:38 Constitutional: Negative for fever, chills, and weight loss, Eyes: Negative for injury, kdr pain, redness, and discharge, ENT: Negative for injury, pain, and discharge, Neck: Negative for injury, pain, and swelling, Cardiovascular: Negative for chest pain, palpitations, and edema, Respiratory: Negative for shortness of breath, cough, wheezing, and pleuritic chest pain, Back: Negative for injury and pain, : Negative for injury, bleeding, discharge, and swelling, MS/Extremity: Negative for injury and deformity, Skin: Negative for injury, rash, and discoloration, Neuro: Negative for headache, weakness, numbness, tingling, and seizure activity. Psych: Negative for depression, anxiety, suicide ideation, homicidal ideation, and hallucinations, Allergy/Immunology: Negative for hives, rash, and allergies, Endocrine: Negative for neck swelling, polydipsia, polyuria, polyphagia, and marked weight changes, Hematologic/Lymphatic: Negative for swollen nodes, abnormal bleeding, and unusual bruising. 18:38 Abdomen/GI: Positive for abdominal pain, nausea, Negative for constipation, abdominal cramps, abdominal distension, anorexia, dysphagia, hematemesis, black/tarry stool, rectal pain, rectal bleeding, bowel incontinence. Exam: 18:38 Constitutional: This is a well developed, well nourished patient who is awake, alert, kdr and in no acute distress. Head/Face: Normocephalic, atraumatic. Eyes: Pupils equal round and reactive to light, extra-ocular motions intact. Lids and lashes normal. Conjunctiva and sclera are non-icteric and not injected. Cornea within normal limits. Periorbital areas with no swelling, redness, or edema. Neck: Trachea midline, no thyromegaly or masses palpated, and no cervical lymphadenopathy. Supple, full range of motion without nuchal rigidity, or vertebral point tenderness. No Meningismus. Chest/axilla: Normal chest wall appearance and motion. Nontender with no deformity. No lesions are appreciated. Cardiovascular: Regular rate and rhythm with a normal S1 and S2. No gallops, murmurs, or rubs. Normal PMI, no JVD. No pulse deficits. Respiratory: Lungs have equal breath sounds bilaterally, clear to auscultation and percussion. No rales, rhonchi or wheezes noted. No increased work of breathing, no retractions or nasal flaring. Back: No spinal tenderness. No costovertebral tenderness. Full range of motion. Skin: Warm, dry with normal turgor. Normal color with no rashes, no lesions, and no evidence of cellulitis. MS/ Extremity: Pulses equal, no cyanosis. Neurovascular intact. Full, normal range of motion. Neuro: Awake and alert, GCS 15, oriented to person, place, time, and situation. Cranial nerves II-XII grossly intact. Motor strength 5/5 in all extremities. Sensory grossly intact. Cerebellar exam normal. Normal gait. Psych: Awake, alert, with orientation to person, place and time. Behavior, mood, and affect are within normal limits. 18:38 Abdomen/GI: Inspection: abdomen appears normal, Bowel sounds: active, Palpation: soft, mild abdominal tenderness, in the left upper quadrant and left lower quadrant. Vital Signs: 16:23 BP 120 / 72; Pulse 77; Resp 16; Temp 98.6; Pulse Ox 99% on R/A; sg 18:06 BP 108 / 88; Pulse 60; Resp 15 S; Pulse Ox 99% on R/A; ca1 19:35 BP 118 / 83; Pulse 64; Resp 17 S; Pulse Ox 99% on R/A; ca1 MDM: 18:38 Data reviewed: vital signs, nurses notes, lab test result(s), radiologic studies. kdr Counseling: I had a detailed discussion with the patient and/or guardian regarding: the historical points, exam findings, and any diagnostic results supporting the discharge/admit diagnosis, lab results, radiology results. 19:07 Patient medically screened. jr8 19:21 Data interpreted: Pulse oximetry: on room air is 99 %. Interpretation: normal. jr8 Counseling: I had a detailed discussion with the patient and/or guardian regarding: the need for outpatient follow up, a merchandise executive, to return to the emergency department if symptoms worsen or persist or if there are any questions or concerns that arise at home. Response to treatment: the patient's symptoms have mildly improved after treatment. Special discussion: Based on the patient's Hx, exam, and Dx evaluation, there is no indication for emergent surgery or inpatient Tx. It is understood by the patient/guardian that if the Sx's persist or worsen they need to return immediately for re-evaluation. 02/14 17:26 Order name: Basic Metabolic Panel [facility] 02/14 17:26 Order name: CBC with Diff [facility] 02/14 17:26 Order name: Creatinine for Radiology [facility] 02/14 17:26 Order name: Hepatic Function [facility] 02/14 17:26 Order name: Lipase kdr 02/14 18:04 Order name: CBC with Automated Diff; Complete Time: 18:25 EDMS 02/14 17:26 Order name: CT Abd/Pelvis - IV Contrast Only kdr 02/14 18:09 Order name: Basic Metabolic Panel; Complete Time: 18:25 [facility] 02/14 18:09 Order name: Liver (Hepatic) Function; Complete Time: 18:25 [facility] 02/14 18:09 Order name: Lipase; Complete Time: 18:25 [facility] 02/14 18:11 Order name: Creatinine (Radiology Only); Complete Time: 18:25 [facility] 02/14 19:02 Order name: CT; Complete Time: 19:21 [facility] 02/14 17:26 Order name: IV Saline Lock; Complete Time: 17:32 kdr 02/14 17:26 Order name: Labs collected and sent; Complete Time: 17:32 kdr Administered Medications: 17:35 Drug: Pepcid 20 mg Route: IVP; Site: left forearm; ca1 18:30 Follow up: Response: No adverse reaction; Pain is decreased ca1 18:48 Drug: Potassium Chloride 40 mEq Route: PO; ca1 19:30 Follow up: Response: No adverse reaction ca1 Disposition: 02/14/19 19:30 Discharged to Home. Impression: Enteritis, Generalized abdominal pain. - Condition is Stable. - Discharge Instructions: Abdominal Pain, Adult. - Prescriptions for Bentyl 20 mg Oral Tablet - take 1 tablet by ORAL route every 6 hours As needed; 20 tablet. Zofran 4 mg Oral Tablet - take 1 tablet by ORAL route every 12 hours As needed; 20 tablet. - Work release form, Medication Reconciliation Form, Thank You Letter, Antibiotic Education, Prescription Opioid Use form. - Follow up: Dc Adam MD; When: 1 week; Reason: If symptoms return, Recheck today's complaints, Continuance of care, Re-evaluation by your physician. - Problem is new. - Symptoms have improved. Addendum: 02/16/2019 09:40 Co-signature as Attending Physician, Get Cox MD I agree with the assessment and k dr plan of care. Signatures: Dispatcher [employer] EDOsbaldo Kim RN JEOVANY Get Cox MD MD [facility] Jose Barbosa, THU ANDINO jr8 Zulema Ramirez RN RN ca1 Corrections: (The following items were deleted from the chart) 02/14 19:40 19:30 02/14/2019 19:30 Discharged to Home. Impression: Enteritis; Generalized abdominal ca1 pain. Condition is Stable. Forms are Medication Reconciliation Form, Thank You Letter, Antibiotic Education, Prescription Opioid Use. Follow up: Dc Adam; When: 1 week; Reason: If symptoms return, Recheck today's complaints, Continuance of care, Re-evaluation by your physician. Problem is new. Symptoms have improved. jr8
--- NOTE | 2019-02-14 19:31 | ER ---
Nurse's Notes [facility] Name: Ervin Iniguez Age: 33 yrs Sex: Female : 1985 Arrival Date: 02/14/2019 Time: 16:20 Bed 25 Private MD: Diagnosis: Enteritis;Generalized abdominal pain Presentation: 02/14 16:25 Presenting complaint: Patient states: I have had upper epigastric and abd pain for 2 sg days now, N/V/D/Fever, reports having worm like foreignbodies in stool as well. Transition of care: patient was not received from another setting of care. Onset of symptoms was February 14, 2019. Risk Assessment: Do you want to hurt yourself or someone else? Patient reports no desire to harm self or others. Initial Sepsis Screen: Does the patient meet any 2 criteria? No. Patient's initial sepsis screen is negative. Does the patient have a suspected source of infection? No. Patient's initial sepsis screen is negative. Care prior to arrival: None. 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 - Social history:: Smoking status: Patient/guardian denies using tobacco. - Ebola Screening: : Patient negative for fever greater than or equal to 101.5 degrees Fahrenheit, and additional compatible Ebola Virus Disease symptoms Patient denies exposure to infectious person Patient denies travel to an Ebola-affected area in the 21 days before illness onset No symptoms or risks identified at this time. Screenin:10 Abuse screen: Denies threats or abuse. Denies injuries from another. Nutritional ca1 screening: No deficits noted. Tuberculosis screening: No symptoms or risk factors identified. Fall Risk IV access (20 points). Assessment: 17:10 General: Appears in no apparent distress. comfortable, Behavior is calm, cooperative, ca1 appropriate for age. Pain: Complains of pain in right lower quadrant and left lower quadrant Pain does not radiate. Pain currently is 8 out of 10 on a pain scale. Pain began 2-3 days ago. Is intermittent. Neuro: Level of Consciousness is awake, alert, obeys commands, Oriented to person, place, time, situation, Appropriate for age. Cardiovascular: Heart tones S1 S2 present Capillary refill < 3 seconds Patient's skin is warm and dry. Pulses are all present. Respiratory: Airway is patent Respiratory effort is even, unlabored, Respiratory pattern is regular, symmetrical, Breath sounds are clear bilaterally. GI: Abdomen is flat, non-distended, Bowel sounds present X 4 quads. Abd is soft X 4 quads Abdomen is tender to palpation in right lower quadrant and left lower quadrant Reports nausea, vomiting. : No deficits noted. No signs and/or symptoms were reported regarding the genitourinary system. EENT: No deficits noted. No signs and/or symptoms were reported regarding the EENT system. Derm: Skin is intact, is healthy with good turgor, Skin is pink, warm \T\ dry. Musculoskeletal: Circulation, motion, and sensation intact. Capillary refill < 3 seconds, Range of motion: intact in all extremities. 18:06 Reassessment: Patient appears in no apparent distress at this time. Patient and/or ca1 family updated on plan of care and expected duration. Pain level reassessed. Patient is alert, oriented x 3, equal unlabored respirations, skin warm/dry/pink. 19:35 Reassessment: Patient appears in no apparent distress at this time. Patient and/or ca1 family updated on plan of care and expected duration. Pain level reassessed. Patient is alert, oriented x 3, equal unlabored respirations, skin warm/dry/pink. Vital Signs: 16:23 BP 120 / 72; Pulse 77; Resp 16; Temp 98.6; Pulse Ox 99% on R/A; sg 18:06 BP 108 / 88; Pulse 60; Resp 15 S; Pulse Ox 99% on R/A; ca1 19:35 BP 118 / 83; Pulse 64; Resp 17 S; Pulse Ox 99% on R/A; ca1 ED Course: 16:20 Patient arrived in ED. rg4 16:23 Arm band placed on. sg 16:24 Get Cox MD is Attending Physician. kdr 16:26 Triage completed. sg 17:00 Zulema Ramirez RN is Primary Nurse. ca1 17:15 Bed in low position. Call light in reach. Side rails up X 1. Warm blanket given. Verbal jp3 reassurance given. Pulse ox on. 17:15 Patient maintains SpO2 saturation greater than 95% on room air. jp3 17:33 No provider procedures requiring assistance completed. Inserted saline lock: 22 gauge ca1 in left forearm, using aseptic technique. Blood collected. 19:07 Jose Barbosa PA is PHCP. jr8 19:22 Dc Adam MD is Referral Physician. jr8 19:40 IV discontinued, intact, bleeding controlled, No redness/swelling at site. Pressure ca1 dressing applied. Administered Medications: 17:35 Drug: Pepcid 20 mg Route: IVP; Site: left forearm; ca1 18:30 Follow up: Response: No adverse reaction; Pain is decreased ca1 18:48 Drug: Potassium Chloride 40 mEq Route: PO; ca1 19:30 Follow up: Response: No adverse reaction ca1 Outcome: 19:30 Discharge ordered by . jr8 19:40 Discharged to home ambulatory, with significant other. ca1 19:40 Condition: stable 19:40 Discharge instructions given to patient, Instructed on discharge instructions, follow up and referral plans. medication usage, Demonstrated understanding of instructions, follow-up care, medications, Prescriptions given X 2. 19:40 Patient left the ED. ca1 Signatures: Osbaldo Lundberg, RN RN sg Get Cox MD MD [facility] Jose Barbosa PA PA jr8 Devorah Moreira rg4 Royal Jameson jp3 Zulema Ramirez, JEOVANY RN ca1 Corrections: (The following items were deleted from the chart) 18:15 18:06 Reassessment: Patient appears in no apparent distress at this time. Patient ca1 and/or family updated on plan of care and expected duration. Pain level reassessed. Patient is alert, oriented x 3, equal unlabored respirations, skin warm/dry/pink. Pt back from CT scan ca1
[2019-02-14 21:24] VITALS: TEMP 98.6; O2SAT 99
[2019-02-14 21:28] VITALS: BP 118/83
== END 2019-02-14 19:40 | disposition home or self-care (01) ==
LOC: ER 16:18
DX: K52.9 Noninfective gastroenteritis and colitis, unspecified (principal); Z91.013 Allergy to seafood
CPT/HCPCS: 36415; 74177; 80048; 80076; 83690; 85025; 96374; 99284; Q9967

== ENCOUNTER 2019-05-11 16:05 | Emergency (ER) | payer SELFPAY ==
[2019-05-11 16:45] LABS: Urine Blood NEGATIVE (NEG); Urine Glucose NEGATIVE (NEG); Urine Protein NEGATIVE (NEG); Urine Specific Gravity 1.015 (1.005-1.030)
[2019-05-11] MEDS ORDERED: NA CHLORIDE 0.9% 1,000 ML ONE (16:52)
[2019-05-11 17:10] LABS: Absolute Lymphocytes (CBC) 3.2 K/uL (0.7-4.9); Basophils % 0.4 % (0-1.3); Lymphocytes % 29.5 % (15.3-44.8); MPV 11.2 fL (7.6-11.3); RBC Red Blood Cell Count 3.94 M/uL (3.86-4.86)
[2019-05-11 17:23] LABS: ALT/SGPT 25 U/L (12-78); AST/SGOT 15 U/L (15-37); Albumin 3.8 g/dL (3.4-5.0); Alkaline Phosphatase 56 U/L (45-117); BUN Blood Urea Nitrogen 10 mg/dL (7-18); Bicarbonate 28 mmol/L (21-32); Bilirubin Total 0.6 mg/dL (0.2-1.0); Glucose Level 83 mg/dL (74-106); Potassium 3.8 mmol/L (3.5-5.1); Sodium Level 142 mmol/L (136-145)
--- NOTE | 2019-05-11 17:33 | RAD REPORT ---
EXAM DESCRIPTION: US - Transvaginal Study Probe - 05/11/2019 5:22 pm CLINICAL HISTORY: ABD PAIN Pelvic pain. COMPARISON: Transvaginal Study Probe dated 08/30/2018 FINDINGS: The uterus is normal in size, shape and echotexture. The uterus measures 6.7 x 4.4 x 3.3 c m. The endometrial stripe measures 7 mm, normal. Both ovaries are normal in size, shape and echotexture. The right ovary measures 2.4 x 1.9 x 1.5 cm. The left ovary measures 3.1 x 7.4 x 3.4 cm. No ovarian or parovarian lesions. No adnexal masses. Normal Doppler blood flow was demonstrated to both ovaries. Mild free fluid is seen in the pelvis. IMPRESSION: Unremarkable study.
--- NOTE | 2019-05-11 18:18 | ER ---
[facility]'s Notes [facility] Name: Ervin Iniguez Age: 33 yrs Sex: Female : 1985 Arrival Date: 05/11/2019 Time: 16:07 Bed 8 Private MD: Diagnosis: Abdominal and pelvic pain Presentation: 05/11 16:16 Presenting complaint: Patient states: "A couple months ago I had a cyst that bursts, aj1 today I feel the same way I felt back then. I'm real nauseated but I can't throw up and it hurts down there" Denies urinary symptoms. Denies any abnormal vaginal discharge. Denies fever. Transition of care: patient was not received from another setting of care. Onset of symptoms was May 11, 2019. Risk Assessment: Do you want to hurt yourself or someone else? Patient reports no desire to harm self or others. Initial Sepsis Screen: Does the patient meet any 2 criteria? No. Patient's initial sepsis screen is negative. Does the patient have a suspected source of infection? No. Patient's initial sepsis screen is negative. Care prior to arrival: None. 16:16 Method Of Arrival: Ambulatory aj 16:16 Acuity: MARGARET 3 aj1 Triage Assessment: 16:18 General: Appears in no apparent distress. comfortable, Behavior is calm, cooperative, aj1 appropriate for age. Pain: Complains of pain in pelvis Pain currently is 8 out of 10 on a pain scale. Neuro: Level of Consciousness is awake, alert, obeys commands. Cardiovascular: Patient's skin is warm and dry. Respiratory: Airway is patent Respiratory effort is even, unlabored, Respiratory pattern is regular, symmetrical. 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 - Social history:: Smoking status: Patient uses tobacco products, smokes one pack cigarettes per day. - Ebola Screening: : Patient denies travel to an Ebola-affected area in the 21 days before illness onset. - Family history:: not pertinent. Screenin:33 Abuse screen: Denies threats or abuse. Denies injuries from another. Nutritional jl7 screening: No deficits noted. Tuberculosis screening: No symptoms or risk factors identified. Fall Risk None identified. Assessment: 16:33 General: Appears in no apparent distress. uncomfortable, Behavior is calm, cooperative, jl7 appropriate for age. Pain: Complains of pain in left lower quadrant Pain radiates to pelvis Pain currently is 8 out of 10 on a pain scale. Quality of pain is described as sharp, shooting, Pain began 2-3 days ago. Is continuous. Neuro: Level of Consciousness is awake, alert, obeys commands, Oriented to person, place, time, situation. Cardiovascular: Patient's skin is warm and dry. Respiratory: Airway is patent Respiratory effort is even, unlabored, Respiratory pattern is regular, symmetrical. GI: Abdomen is flat, non-distended, Stools are reported to be normal. Last BM was May 11, 2019. Bowel sounds present X 4 quads. Abd is soft X 4 quads Abd is non tender in right upper quadrant, left upper quadrant and right lower quadrant Abdomen is tender to palpation in suprapubic area and left lower quadrant. : Urine is clear, Denies burning with urination, discharge, pain vaginal bleeding. Derm: Skin is pink, warm \\T\\ dry. Musculoskeletal: No signs and/or symptoms reported regarding the musculoskeletal system. 18:03 Reassessment: Patient appears in no apparent distress at this time. Patient and/or hb family updated on plan of care and expected duration. Pain level reassessed. Patient is alert, oriented x 3, equal unlabored respirations, skin warm/dry/pink. Vital Signs: 16:18 BP 112 / 77; Pulse 81; Resp 18; Temp 98.0; Pulse Ox 100% on R/A; Weight 49.9 kg (R); aj1 Height 4 ft. 11 in. (149.86 cm) (R); 18:03 BP 116 / 78; Pulse 76; Resp 15; Pulse Ox 100% on R/A; hb 16:18 Body Mass Index 22.22 (49.90 kg, 149.86 cm) aj1 ED Course: 16:07 Patient arrived in ED. as 16:18 Triage completed. aj1 16:18 Arm band placed on Patient placed in an exam room. aj1 16:20 Henley, Jahala, RN is Primary Nurse. jl7 16:26 Yury Raygoza MD is Attending Physician. [facility] 16:33 Patient has correct armband on for positive identification. Bed in low position. Call jl7 light in reach. Side rails up X 1. Pulse ox on. NIBP on. Warm blanket given. 16:33 Urine collected: clean catch specimen, clear. jl7 16:48 Inserted saline lock: 20 gauge in right forearm, using aseptic technique. ,using jl7 aseptic technique. by DANYA THAYER Blood collected. 16:53 Urine --Ancillary (enter results) Sent. jl7 16:53 Urine Dipstick--Ancillary (enter results) Sent. jl7 17:26 US Transvaginal Study (Probe) In Process Unspecified. EDSD 18:45 No provider procedures requiring assistance completed. IV discontinued, intact, jl7 bleeding controlled, No redness/swelling at site. Pressure dressing applied. Administered Medications: 16:53 Drug: NS 0.9% 1000 ml Route: IV; Rate: 1 bolus; Site: right forearm; jl7 18:30 Follow up: Response: No adverse reaction; IV Status: Completed infusion; IV Intake: jl7 1000ml Intake: 18:30 IV: 1000ml; Total: 1000ml. jl7 Outcome: 18:17 Discharge ordered by . [facility] 18:45 Discharged to home ambulatory. jl7 18:45 Condition: stable 18:45 Discharge instructions given to patient, Instructed on discharge instructions, follow up and referral plans. medication usage, Demonstrated understanding of instructions, follow-up care, medications, Prescriptions given X 3. 18:46 Patient left the ED. jl7 Signatures: Dispatcher [employer] EDSD Radha Turner, JEOVANY RN aj1 Yury Raygoza MD MD cha Martinez, Amelia as Baxter, Heather, Naren Wick RN, RN RN jl7
--- NOTE | 2019-05-11 18:18 | EDPHYS ---
Physician Documentation [facility] Name: Ervin Iniguez Age: 33 yrs Sex: Female : 1985 Arrival Date: 05/11/2019 Time: 16:07 Bed 8 Private MD: ED Physician Yury Raygoza HPI: 05/11 16:43 This 33 yrs old Black Female presents to ER via Ambulatory with complaints of Pelvic stephanie Pain. 16:43 The patient presents with pelvic pain, that is located in/on the right lower quadrant stephanie and left lower quadrant. Onset: The symptoms/episode began/occurred 3 day(s) ago. Modifying factors: The symptoms are alleviated by nothing, the symptoms are aggravated by movement, pressure. Associated signs and symptoms: The patient has no apparent associated signs or symptoms. Severity of symptoms: At their worst the symptoms were moderate, in the emergency department the symptoms are unchanged. The patient has experienced similar episodes in the past, a few times. 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 - Social history:: Smoking status: Patient uses tobacco products, smokes one pack cigarettes per day. - Ebola Screening: : Patient denies travel to an Ebola-affected area in the 21 days before illness onset. - Family history:: not pertinent. ROS: 16:43 Constitutional: Negative for fever, chills, and weight loss, Eyes: Negative for injury, stephanie pain, redness, and discharge, ENT: Negative for injury, pain, and discharge, Neck: Negative for injury, pain, and swelling, Cardiovascular: Negative for chest pain, palpitations, and edema, Respiratory: Negative for shortness of breath, cough, wheezing, and pleuritic chest pain, Back: Negative for injury and pain, : Negative for injury, bleeding, discharge, and swelling, MS/Extremity: Negative for injury and deformity, Skin: Negative for injury, rash, and discoloration, Neuro: Negative for headache, weakness, numbness, tingling, and seizure, Psych: Negative for depression, anxiety, suicide ideation, homicidal ideation, and hallucinations, Allergy/Immunology: Negative for hives, rash, and allergies, Endocrine: Negative for neck swelling, polydipsia, polyuria, polyphagia, and marked weight changes, Hematologic/Lymphatic: Negative for swollen nodes, abnormal bleeding, and unusual bruising. 16:43 Abdomen/GI: Positive for abdominal pain, of the right lower quadrant. Exam: 16:43 Constitutional: This is a well developed, well nourished patient who is awake, alert, stephanie and in no acute distress. Head/Face: Normocephalic, atraumatic. Eyes: Pupils equal round and reactive to light, extra-ocular motions intact. Lids and lashes normal. Conjunctiva and sclera are non-icteric and not injected. Cornea within normal limits. Periorbital areas with no swelling, redness, or edema. ENT: Nares patent. No nasal discharge, no septal abnormalities noted. Tympanic membranes are normal and external auditory canals are clear. Oropharynx with no redness, swelling, or masses, exudates, or evidence of obstruction, uvula midline. Mucous membranes moist. Neck: Trachea midline, no thyromegaly or masses palpated, and no cervical lymphadenopathy. Supple, full range of motion without nuchal rigidity, or vertebral point tenderness. No Meningismus. Chest/axilla: Normal chest wall appearance and motion. Nontender with no deformity. No lesions are appreciated. Cardiovascular: Regular rate and rhythm with a normal S1 and S2. No gallops, murmurs, or rubs. Normal PMI, no JVD. No pulse deficits. Respiratory: Lungs have equal breath sounds bilaterally, clear to auscultation and percussion. No rales, rhonchi or wheezes noted. No increased work of breathing, no retractions or nasal flaring. Back: No spinal tenderness. No costovertebral tenderness. Full range of motion. Female : Normal external genitalia. Skin: Warm, dry with normal turgor. Normal color with no rashes, no lesions, and no evidence of cellulitis. MS/ Extremity: Pulses equal, no cyanosis. Neurovascular intact. Full, normal range of motion. Neuro: Awake and alert, GCS 15, oriented to person, place, time, and situation. Cranial nerves II-XII grossly intact. Motor strength 5/5 in all extremities. Sensory grossly intact. Cerebellar exam normal. Normal gait. 16:43 Abdomen/GI: Inspection: abdomen appears normal, Bowel sounds: normal, Palpation: moderate abdominal tenderness, in the right lower quadrant and left lower quadrant, Liver: no appreciated palpable abnormalities, Hernia: not appreciated. Vital Signs: 16:18 BP 112 / 77; Pulse 81; Resp 18; Temp 98.0; Pulse Ox 100% on R/A; Weight 49.9 kg (R); aj1 Height 4 ft. 11 in. (149.86 cm) (R); 18:03 BP 116 / 78; Pulse 76; Resp 15; Pulse Ox 100% on R/A; hb 16:18 Body Mass Index 22.22 (49.90 kg, 149.86 cm) aj1 MDM: 16:[address] [facility] 16:44 Data reviewed: vital signs, nurses notes, lab test result(s), EKG, radiologic studies, [facility] ultrasound. 05/11 16:40 Order name: CBC with Diff; Complete Time: 17:30 [facility] 05/11 16:40 Order name: Comprehensive Metabolic Panel; Complete Time: 17:30 [facility] 05/11 16:40 Order name: Urine Culture [facility] 05/11 16:40 Order name: Urine Dipstick--Ancillary (enter results) 05/11 16:42 Order name: Urine --Ancillary (enter results) 05/11 16:45 Order name: Urine Dipstick-Ancillary EDMS 05/11 16:40 Order name: Urine Dipstick-Ancillary (obtain specimen); Complete Time: 16:48 [facility] 05/11 16:40 Order name: Urine Test (obtain specimen); Complete Time: 16:48 [facility] 05/11 16:40 Order name: US Transvaginal Study (Probe) [facility] 05/11 16:45 Order name: Urine --Ancillary EDMS Administered Medications: 16:53 Drug: NS 0.9% 1000 ml Route: IV; Rate: 1 bolus; Site: right forearm; jl7 18:30 Follow up: Response: No adverse reaction; IV Status: Completed infusion; IV Intake: jl7 1000ml Disposition: 05/11/19 18:17 Discharged to Home. Impression: Abdominal and pelvic pain. - Condition is Stable. - Discharge Instructions: Ovarian Cyst, Pelvic Pain, Female, Pelvic Pain, Female, [id number], Ovarian Cyst, [id number], Pelvic Rest. - Prescriptions for Tylenol- Codeine #3 300-30 mg Oral Tablet - take 2 tablets by ORAL route every 6 hours As needed; 24 tablet. Motrin IB 200 mg Oral Tablet - take 2 tablet by ORAL route every 6 hours As needed as needed with food; 30 tablet. Colace 100 mg Oral Tablet - take 1 tablet by ORAL route every 12 hours; 14 tablet. - Medication Reconciliation Form, Thank You Letter, Antibiotic Education, Prescription Opioid Use form. - Work release form (05/11/19 18:49). hb - Follow up: Private Physician; When: 2 - 3 days; Reason: Recheck today's complaints, Continuance of care, Re-evaluation by your physician. - Problem is new. - Symptoms have improved. Signatures: Dispatcher [employer] EDRadha Spain RN RN aj1 Yury Raygoza MD MD cha Leal, Jahala, RN RN jl7 Ayana Jones RN Corrections: (The following items were deleted from the chart) 18:46 18:17 05/11/2019 18:17 Discharged to Home. Impression: Abdominal and pelvic pain. jl7 Condition is Stable. Discharge Instructions: Ovarian Cyst, Pelvic Pain, Female, Pelvic Pain, Female, [id number], Ovarian Cyst, [id number], Pelvic Rest. Prescriptions for Tylenol-Codeine #3 300-30 mg Oral Tablet - take 2 tablets by ORAL route every 6 hours As needed; 24 tablet, Motrin IB 200 mg Oral Tablet - take 2 tablet by ORAL route every 6 hours As needed as needed with food; 30 tablet, Colace 100 mg Oral Tablet - take 1 tablet by ORAL route every 12 hours; 14 tablet. and Forms are Medication Reconciliation Form, Thank You Letter, Antibiotic Education, Prescription Opioid Use. Follow up: Private Physician; When: 2 - 3 days; Reason: Recheck today's complaints, Continuance of care, Re-evaluation by your physician. Problem is new. Symptoms have improved. stephanie
[2019-05-11 19:27] VITALS: TEMP 98; O2SAT 100
[2019-05-11 19:29] VITALS: BP 116/78
== END 2019-05-11 18:46 | disposition home or self-care (01) ==
LOC: ER 16:05
DX: R10.2 Pelvic and perineal pain (principal); R10.9 Unspecified abdominal pain; Z91.013 Allergy to seafood; F17.210 Nicotine dependence, cigarettes, uncomplicated
CPT/HCPCS: 36415; 76830; 80053; 81003; 81025; 85025; 87086; 87088; 96360; 96361; 99284; J7030